=== PATIENT | female | born 1965 | race African-American/Black ===

== ENCOUNTER 2017-02-11 15:12 | Inpatient (IN) | payer OTHER ==
[2017-02-11 17:54] VITALS: BMI 34.8
--- NOTE | 2017-02-11 20:00 | HP ---
Admission ROS [facility] Chief Complaint: ha muhammad for rehab from alcohol and cocaine Allergies/Adverse Reactions: Allergies Allergy/AdvReac Type Severity Reaction Status Date / Time aspirin Allergy Severe Difficulty Verified 07/24/15 17:56 Breathing fish derived Allergy Severe Difficulty Verified 07/24/15 17:56 Breathing pork derived (porcine) Allergy Severe Difficulty Verified 07/24/15 17:56 Breathing History of Present Illness: this 51 years old female with alcohol and cocaine dependence for rehab,last treatment in [facility] 01/18/17 to 02/11/17 schizoaffective disorder nicotine dependence multiple admissions in the past longest period of sobriety 4 years Exam Limitations: No Limitations - Ebola screening Have you traveled outside of the country in the last 21 days: No Have you had contact with anyone from an Ebola affected area: No Have you been sick,other than usual withdrawal symptoms: No - Review of Systems Constitutional: No Symptoms Reported EENT: reports: No Symptoms Reported Respiratory: reports: No Symptoms reported Cardiac: reports: No Symptoms Reported GI: reports: No Symptoms Reported : reports: No Symptoms Reported Musculoskeletal: reports: No Symptoms Reported Integumentary: reports: No Symptoms Reported Neuro: reports: No Symptoms reported Endocrine: reports: No Symptoms Reported Hematology: reports: No Symptoms Reported Psychiatric: reports: No Sypmtoms Reported (shizoaffective disorder), Judgement Intact, Mood/Affect Appropiate Patient History - Patient Medical History Hx Anemia: No Hx Asthma: No Hx Chronic Obstructive Pulmonary Disease (COPD): No Hx Cancer: No Hx Cardiac Disorders: No Hx Congestive Heart Failure: No Hx Hypertension: Yes (on norvasc 5 mgs po dialy) Hx Hypercholesterolemia: No Hx Pacemaker: No HX Cerebrovascular Accident: No Hx Seizures: No Hx Dementia: No Hx Diabetes: No Hx Gastrointestinal Disorders: No Hx Liver Disease: No Hx Genitourinary Disorders: No Hx Sexually Transmitted Disorders: Yes (SYPHILIS) Hx Renal Disease (ESRD): No Hx Thyroid Disease: No Hx Human Immunodeficiency Virus (HIV): No (last 01/03 negative) Hx Hepatitis C: No Hx Depression: Yes Hx Suicide Attempt: Yes (X3 TIMES BY OVERDOSING PILLS.) Hx Bipolar Disorder: No Hx Schizophrenia: Yes Other Medical History: no suicidal,no homicidal - Patient Surgical History Past Surgical History: No Hx Neurologic Surgery: No Hx Cataract Extraction: No Hx Cardiac Surgery: No Hx Lung Surgery: No Hx Breast Surgery: No Hx Breast Biopsy: No Hx Abdominal Surgery: No Hx Appendectomy: No Hx Cholecystectomy: No Hx Genitourinary Surgery: No Hx Section: No Hx Orthopedic Surgery: No Anesthesia Reaction: No - PPD History Previous Implant?: Yes Documented Results: Negative w/o proof Implanted On Prior [facility] Admission?: Yes Date: 11/30/14 Results: 0MM PPD to be Administered?: Yes - Reproductive History Patient is a Female of Child Bearing Age (11 -55 yrs old): Yes Last Menstrual Period: 09/26/14 Patient : No - Smoking Cessation Smoking history: Current every day smoker Have you smoked in the past 12 months: Yes Aproximately how many cigarettes per day: 5 Cigars Per Day: 0 Hx Chewing Tobacco Use: No Initiated information on smoking cessation: Yes 'Breaking Loose' booklet given: 02/11/17 - Substance & Tx. History Hx Alcohol Use: Yes Hx Substance Use: Yes Substance Use Type: Alcohol, Cocaine Hx Substance Use Treatment: Yes ([facility] 01/18/17 to 02/11/17) - Substances Abused Alcohol Route: Oral Frequency: Daily Amount used: 2 of 6 packs of 16 ozs can of beer Age of first use: 17 Date of Last Use: 01/15/17 Cocaine Route: Smoking Frequency: 1-2 times per week Amount used: 50$ Age of first use: 26 Date of Last Use: 01/15/17 Family Disease History - Family Disease History Family Disease History: Heart Disease: Mother (alcohol,htn), CA: Sister (alcohol ,colon ca.), Other: Mother, Brother (alcohol), Sister Admission Physical Exam [facility] - Vital Signs Vital Signs: Vital Signs - 24 hr 02/11/17 17:50 Temperature 97.0 F L Pulse Rate 71 Respiratory 18 Rate Blood Pressure 123/70 - Physical General Appearance: Yes: Within Normal Limits HEENTM: Yes: Hearing grossly Normal, Normal ENT Inspection, Pharynx Normal Respiratory: Yes: Lungs Clear, Normal Breath Sounds, No Respiratory Distress Neck: Yes: Within Normal Limits Breast: Yes: Breast Exam Deferred Cardiology: Yes: Within Normal Limits, Regular Rhythm, Regular Rate, S1, S2 Abdominal: Yes: Within Normal Limits, Normal Bowel Sounds, Non Tender, Flat, Soft Genitourinary: Yes: Within Normal Limits Back: Yes: Within Normal Limits Musculoskeletal: Yes: Within Normal Limits, full range of Motion Extremities: Yes: Within Normal Limits 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, Fully Oriented, Alert, Motor Strength 5/5 Integumentary: Yes: Within Normal Limits Lymphatic: Yes: Within Normal Limits - Diagnostic (1) Alcohol dependence Current Visit: No Status: Chronic (2) Cocaine dependence Current Visit: No Status: Chronic (3) HTN (hypertension) Current Visit: No Status: Chronic (4) Nicotine dependence Current Visit: No Status: Chronic (5) Schizophrenia, paranoid type Current Visit: No Status: Chronic (6) History of syphilis Current Visit: Yes Status: Acute Cleared for Admission [facility] - Detox or Rehab Claeared for Rehab Admission: Yes [facility] Breath Alcohol Content Breath Alcohol Content: 0 Urine Pregancy Test - Result Urine Test Results: Negative- NO Line Present Urine Drug Screen - Results Drug Screen Negative: Yes
[2017-02-11] MEDS ORDERED: MENTHOL/PHENOL 1 EACH UD MM PRN (20:12)
[2017-02-11] MEDS ORDERED: diphenhydrAMINE HCL 50 MG CAPSULE PO PRN (20:12)
[2017-02-11] MEDS ORDERED: LOPERAMIDE HCL 2 MG CAPSULE PO PRN (20:12)
[2017-02-11] MEDS ORDERED: IBUPROFEN 400 MG TABLET (FP) PO PRN (20:12)
[2017-02-11] MEDS ORDERED: guaiFENesin/D-METHORPHAN HB 10 ML UNIT-DOSE CUPS PO PRN (20:12)
[2017-02-11] MEDS ORDERED: MAGNESIUM HYDROX 2400MG/30ML ORAL SUSPENSION 30 ML CUP PO PRN (20:12)
[2017-02-11] MEDS ORDERED: MAGNESIUM CITRATE 300 ML BOTTLE PO PRN (20:12)
[2017-02-11] MEDS ORDERED: ACETAMINOPHEN 325 MG TABLET (FP) PO PRN (20:12)
[2017-02-11] MEDS ORDERED: P-EPHED 60MG/TRIPROLIDI 2.5MG TABLET PO PRN (20:12)
[2017-02-11] MEDS ORDERED: MAG HYDROX/AL HYDROX/SIMETH 30 ML UNIT-DOSE CUP PO PRN (20:12)
[2017-02-11] MEDS ORDERED: hydrOXYzine PAMOATE 50 MG CAPSULE (FP) PO PRN (20:12)
[2017-02-11] MEDS ORDERED: TUBERCULIN PPD 5 TU/0.1ML VIAL ID ONE (22:02)
[2017-02-11 23:18] LABS: URINE APPEARANCE CLEAR; URINE BILIRUBIN NEGATIVE (NEGATIVE); URINE BLOOD NEGATIVE (NEGATIVE); URINE COLOR STRAW; URINE GLUCOSE (UA) NEGATIVE (NEGATIVE); URINE KETONE NEGATIVE (NEGATIVE); URINE NITRITE NEGATIVE (NEGATIVE); URINE PROTEIN NEGATIVE (NEGATIVE); URINE UROBILINOGEN NEGATIVE mg/dL (0.2-1.0)
--- NOTE | 2017-02-11 23:22 | PN ---
[facility] Progress Note Note: ekg nsr,frequent vpcs no chest pain,no sob,no dizziness Vital Signs Temperature 97.0 F L 02/11/17 17:50 Pulse Rate 71 02/11/17 17:50 Respiratory Rate 18 02/11/17 17:50 Blood Pressure 123/70 02/11/17 17:50 O2 Sat by Pulse Oximetry (%) will repeat ekg in am close monitoring
[2017-02-11] MEDS: BENZTROPINE MESYLATE 1 MG TABLET (FP) PO SCH (23:46)
[2017-02-11] MEDS: HALOPERIDOL 5 MG TABLET (FP) PO SCH (23:46)
[2017-02-11] MEDS: THIAMINE HCL 100 MG TABLET (FP) PO SCH (23:48)
[2017-02-11 23:58] LABS: URINE LEUK ESTERASE 1+ (NEGATIVE)
[2017-02-12 02:19] LABS: URINE RBC <1 /hpf (0-3); URINE WBC 1 /hpf (3-5)
[2017-02-12] MEDS: PRENATAL VITAMINS W/ FOLIC ACID TABLET (FP) PO SCH (09:38)
[2017-02-12] MEDS: SERTRALINE HCL 50 MG TABLET (FP) PO SCH (09:39)
[2017-02-12] MEDS: amLODIPine BESYLATE 5 MG TABLET (FP) PO SCH (09:39)
[2017-02-12] MEDS: BENZTROPINE MESYLATE 1 MG TABLET (FP) PO SCH ×2 (09:39→21:32)
[2017-02-12] MEDS: HALOPERIDOL 5 MG TABLET (FP) PO SCH ×2 (09:39→21:32)
[2017-02-12 10:12] LABS: MCH 29.3 pg (25.7-33.7); MCHC 33.4 g/dl (32.0-36.0); MEAN CELL VOLUME 87.7 fl (80-96); MEAN PLT VOLUME 8.4 fl (7.5-11.1); PLATELET COUNT 205 K/MM3 (134-434); WHITE BLOOD COUNT 4.7 K/mm3 (4.0-10.0)
[2017-02-12 10:26] LABS: ALBUMIN 3.6 g/dl (3.4-5.0); ANION GAP 6 (8-16); CALCIUM 8.6 mg/dL (8.5-10.1); CO2 33 mmol/L (21-32); CREATININE 0.8 mg/dL (0.55-1.02); GLUCOSE,RANDOM 89 mg/dL (74-106); SGOT/AST 19 U/L (15-37); SGPT/ALT 18 U/L (12-78)
[2017-02-12 10:29] LABS: ALK PHOS 61 U/L (45-117); BILIRUBIN,TOTAL 0.5 mg/dL (0.2-1.0); TOT PROT 6.6 g/dl (6.4-8.2)
[2017-02-12 10:38] LABS: HIV 1 & 2 AB NEGATIVE; HIV 1 AGp24 NEGATIVE
--- NOTE | 2017-02-12 11:57 | EKG ---
Test Reason : Blood Pressure : / mmHG Vent. Rate : 074 BPM Atrial Rate : 074 BPM P-R Int : 200 ms QRS Dur : 084 ms QT Int : 426 ms P-R-T Axes : 072 050 053 degrees QTc Int : 472 ms SINUS RHYTHM WITH FREQUENT PREMATURE VENTRICULAR COMPLEXES OTHERWISE NORMAL ECG NO PREVIOUS ECGS AVAILABLE Confirmed by MOO SAVAGE, TARAS ([id number]) on 02/12/2017 11:57:25 AM Referred By: Disha Guo Confirmed By:TARAS CORTÉS MD
--- NOTE | 2017-02-12 12:04 | EKG ---
Test Reason : Blood Pressure : / mmHG Vent. Rate : 055 BPM Atrial Rate : 055 BPM P-R Int : 206 ms QRS Dur : 082 ms QT Int : 470 ms P-R-T Axes : 065 036 043 degrees QTc Int : 449 ms SINUS BRADYCARDIA WITH OCCASIONAL PREMATURE VENTRICULAR COMPLEXES OTHERWISE NORMAL ECG WHEN COMPARED WITH ECG OF 11-FEB-2017 21:11, NO SIGNIFICANT CHANGE WAS FOUND Confirmed by TARAS CORTÉS MD ([id number]) on 02/12/2017 12:04:15 PM Referred By: Disha Guo Confirmed By:TARAS CORTÉS MD
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
[2017-02-12] MEDS: THIAMINE HCL 100 MG TABLET (FP) PO SCH (21:32)
[2017-02-13] MEDS: PRENATAL VITAMINS W/ FOLIC ACID TABLET (FP) PO SCH (09:42)
[2017-02-13] MEDS: SERTRALINE HCL 50 MG TABLET (FP) PO SCH (09:42)
[2017-02-13] MEDS: HALOPERIDOL 5 MG TABLET (FP) PO SCH ×2 (09:42→21:18)
[2017-02-13] MEDS: amLODIPine BESYLATE 5 MG TABLET (FP) PO SCH (09:43)
[2017-02-13] MEDS: BENZTROPINE MESYLATE 1 MG TABLET (FP) PO SCH ×2 (09:43→21:18)
[2017-02-13] MEDS: THIAMINE HCL 100 MG TABLET (FP) PO SCH (21:18)
[2017-02-14] MEDS ORDERED: PT OWN MED DRAWER 7, Y5N ONE (00:16)
[2017-02-14] MEDS: HALOPERIDOL 5 MG TABLET (FP) PO SCH ×2 (09:47→21:00)
[2017-02-14] MEDS: SERTRALINE HCL 50 MG TABLET (FP) PO SCH (09:47)
[2017-02-14] MEDS: BENZTROPINE MESYLATE 1 MG TABLET (FP) PO SCH ×2 (09:47→21:00)
[2017-02-14] MEDS: amLODIPine BESYLATE 5 MG TABLET (FP) PO SCH (09:47)
[2017-02-14] MEDS: PRENATAL VITAMINS W/ FOLIC ACID TABLET (FP) PO SCH (09:47)
[2017-02-14] MEDS: THIAMINE HCL 100 MG TABLET (FP) PO SCH (21:00)
[2017-02-15] MEDS: BENZTROPINE MESYLATE 1 MG TABLET (FP) PO SCH ×2 (09:40→21:02)
[2017-02-15] MEDS: SERTRALINE HCL 50 MG TABLET (FP) PO SCH (09:40)
[2017-02-15] MEDS: PRENATAL VITAMINS W/ FOLIC ACID TABLET (FP) PO SCH (09:40)
[2017-02-15] MEDS: HALOPERIDOL 5 MG TABLET (FP) PO SCH ×2 (09:40→21:02)
[2017-02-15] MEDS: amLODIPine BESYLATE 5 MG TABLET (FP) PO SCH (09:40)
[2017-02-15] MEDS: THIAMINE HCL 100 MG TABLET (FP) PO SCH (21:02)
[2017-02-16] MEDS: SERTRALINE HCL 50 MG TABLET (FP) PO SCH (09:57)
[2017-02-16] MEDS: HALOPERIDOL 5 MG TABLET (FP) PO SCH ×2 (09:57→21:11)
[2017-02-16] MEDS: BENZTROPINE MESYLATE 1 MG TABLET (FP) PO SCH ×2 (09:58→21:12)
[2017-02-16] MEDS: PRENATAL VITAMINS W/ FOLIC ACID TABLET (FP) PO SCH (09:58)
[2017-02-16] MEDS: amLODIPine BESYLATE 5 MG TABLET (FP) PO SCH (09:58)
[2017-02-16] MEDS ORDERED: TUBERCULIN PPD 5 TU/0.1ML VIAL ID ONE (18:04)
[2017-02-16] MEDS: THIAMINE HCL 100 MG TABLET (FP) PO SCH (21:11)
[2017-02-17] MEDS: HALOPERIDOL 5 MG TABLET (FP) PO SCH ×2 (09:44→21:14)
[2017-02-17] MEDS: BENZTROPINE MESYLATE 1 MG TABLET (FP) PO SCH ×2 (09:44→21:14)
[2017-02-17] MEDS ORDERED: PT OWN MED DRAWER 7, Y5N ONE (09:44)
[2017-02-17] MEDS: PRENATAL VITAMINS W/ FOLIC ACID TABLET (FP) PO SCH (09:45)
[2017-02-17] MEDS: SERTRALINE HCL 50 MG TABLET (FP) PO SCH (09:45)
[2017-02-17] MEDS: amLODIPine BESYLATE 5 MG TABLET (FP) PO SCH (09:45)
[2017-02-17] MEDS: THIAMINE HCL 100 MG TABLET (FP) PO SCH (21:14)
[2017-02-18] MEDS: HALOPERIDOL 5 MG TABLET (FP) PO SCH (09:17)
[2017-02-18] MEDS: PRENATAL VITAMINS W/ FOLIC ACID TABLET (FP) PO SCH (09:17)
[2017-02-18] MEDS: BENZTROPINE MESYLATE 1 MG TABLET (FP) PO SCH (09:17)
[2017-02-18] MEDS: SERTRALINE HCL 50 MG TABLET (FP) PO SCH (09:18)
[2017-02-18] MEDS: amLODIPine BESYLATE 5 MG TABLET (FP) PO SCH (09:18)
[2017-02-18 09:50] VITALS: BP 123/79; PULSE 73; TEMP 98.2
--- NOTE | 2017-02-18 10:02 | PN ---
Psychiatric Progress Note Vital Signs: Vital Signs Period Temp Pulse Resp BP Sys/Diego Pulse Ox Last 24 Hr 98.0 F-98.2 F 70-73 16-18 122-123/79-85 Date of Session: 02/18/17 Chief Complaint:: Discharge visit HPI: Patient addressed Cocaine and Alcohol dependence comorbid with ROS: Significant for HTN,H/O Syphilis. Current Medications: Active Medications Generic Name Dose Route Start Last Admin Trade Name Freq PRN Reason Stop Dose Admin Acetaminophen 650 mg 02/11/17 20:12 Tylenol - PO Q4H PRN PAIN Al Hydroxide/Mg Hydroxide 30 ml 02/11/17 20:12 Mylanta Oral Suspension - PO Q6H PRN DYSPEPSIA Amlodipine Besylate 5 mg 02/12/17 10:00 02/18/17 09:18 Norvasc - PO 5 mg DAILY GURJIT Administration Benztropine Mesylate 1 mg 02/11/17 22:15 02/18/17 09:17 Cogentin - PO 1 mg BID GURJIT Administration Eucalyptus/Menthol/Phenol/Sorbitol 1 each 02/11/17 20:12 Cepastat Lozenge - MM Q4H PRN SORE THROAT Guaifenesin 10 ml 02/11/17 20:12 Robitussin Dm - PO Q6H PRN COUGH Haloperidol 10 mg 02/11/17 22:15 02/18/17 09:17 Haldol - PO 10 mg BID GURJIT Administration Hydroxyzine Pamoate 50 mg 02/11/17 20:12 Vistaril - PO Q4H PRN AGITATION Loperamide HCl 4 mg 02/11/17 20:12 Imodium - PO Q6H PRN DIARRHEA Magnesium Citrate 300 ml 02/11/17 20:12 Citroma - PO Q48H PRN CONSTIPATION Magnesium Hydroxide 30 ml 02/11/17 20:12 Milk Of Magnesia - PO DAILY PRN CONSTIPATION Multivit/Folic Acid/Iron 1 tab 02/12/17 10:00 02/18/17 09:17 Vitamins (Sjr) - PO 1 tab DAILY GURJIT Administration Pseudoephedrine/Triprolidine 1 combo 02/11/17 20:12 Actifed - PO TID PRN NASAL CONGESTION Sertraline HCl 100 mg 02/12/17 10:00 02/18/17 09:18 Zoloft - PO 100 mg DAILY GURJIT Administration Thiamine HCl 100 mg 02/11/17 22:00 02/17/17 21:14 Vitamin B1 - PO 100 mg HS GURJIT Administration Current Side Effect: No Lab tests ordered: No Lab tests reviewed: Yes Provider note:: Patient completed this program today.She has met her treatment goals and will continue to address her issues on outpatient basis.patient continues to find that current medications including Haldol 10 mg po bid, Cogentin 1 mg po bid and Zoloft 100 mg po daily help to cope with mood instability,depression,prevent from psychotic episodes.Scripts for 30 days supply provided. Supportive therapy provided focusing on Coping skillls, support system utilization to maintain recovery. patient is stable for discharge today. Total face to face time:: 30 Mental Status Exam - Mental Status Exam Alert and Oriented to: Time, Place, Person Cognitive Function: Grossly Intact Patient Appearance: Well Groomed Mood: Hopeful Affect: Mood Congruent Patient Behavior: Cooperative Speech Pattern: Clear Voice Loudness: Normal Thought Process: Goal Oriented Thought Disorder: Not Present Hallucinations: Denies Suicidal Ideation: Denies Homicidal Ideation: Denies Insight/Judgement: Fair Sleep: Fair Appetite: Good Muscle strength/Tone: Normal Gait/Station: Normal
== END 2017-02-18 09:52 | disposition home or self-care (01) | DRG 772 ==
LOC: YASAS 15:12 → Y3E 20:15
PROVIDERS: ADMIT Psychiatry & Neurology Psychiatry; ATTEND Psychiatry & Neurology Psychiatry
PROC: HZ42ZZZ Group Counseling for Substance Abuse Treatment, Cognitive-Behavioral (ICD-10-PCS; principal; 2017-02-11)
DX: F10.20 Alcohol dependence, uncomplicated (principal); F14.20 Cocaine dependence, uncomplicated; F17.210 Nicotine dependence, cigarettes, uncomplicated; F20.0 Paranoid schizophrenia; I10 Essential (primary) hypertension; Z87.42 Personal history of other diseases of the female genital tract; Z91.5 Personal history of self-harm
CPT/HCPCS: 36415; 80053; 81003; 81015; 85027; 86593; 87389; 93005; 93010

== ENCOUNTER 2017-06-10 11:12 | Inpatient (IN) | payer BC ==
[2017-06-10 11:23] VITALS: BMI 33.9
--- NOTE | 2017-06-10 12:26 | HP ---
Admission ROS [facility] Chief Complaint: REHAB TX FOR ALCOHOL AND COCAINE ADDICTION Allergies/Adverse Reactions: Allergies Allergy/AdvReac Type Severity Reaction Status Date / Time aspirin Allergy Severe Difficulty Verified 06/10/17 11:57 Breathing fish derived Allergy Severe Difficulty Verified 06/10/17 11:57 Breathing pork derived (porcine) Allergy Severe Difficulty Verified 06/10/17 11:57 Breathing History of Present Illness: 52 Y/O AA/FEMALE WITH A HX OF COCAINE AND ALCOHOL DEPENDENCE SEEKING REHAB TX. PT STATES SHE WAS D/C'D FROM [facility] TODAY AFTER 10 DAYS AND REFERRED HERE TODAY. Exam Limitations: No Limitations - Ebola screening Have you traveled outside of the country in the last 21 days: No Have you had contact with anyone from an Ebola affected area: No Have you been sick,other than usual withdrawal symptoms: No - Review of Systems Constitutional: Changes in sleep EENT: reports: Tearing, Nose Congestion, Dental Problems (MISSING TEETH) Respiratory: reports: No Symptoms reported Cardiac: reports: Lightheadedness GI: reports: Constipated : reports: Frequency Musculoskeletal: reports: No Symptoms Reported Integumentary: reports: No Symptoms Reported Neuro: reports: Headache, Tremors, Unsteady Gait, Dizziness Endocrine: reports: No Symptoms Reported Hematology: reports: No Symptoms Reported Psychiatric: reports: Orientated x3, Anxious, Depressed Other Systems: Reviewed and Negative Patient History - Patient Medical History Hx Anemia: No Hx Asthma: No Hx Chronic Obstructive Pulmonary Disease (COPD): No Hx Cancer: No Hx Cardiac Disorders: No Hx Congestive Heart Failure: No Hx Hypertension: Yes (ON NORVASC 5 MG DAILY) Hx Hypercholesterolemia: No Hx Pacemaker: No HX Cerebrovascular Accident: No Hx Seizures: No Hx Dementia: No Hx Diabetes: No Hx Gastrointestinal Disorders: No Hx Liver Disease: No Hx Genitourinary Disorders: No Hx Sexually Transmitted Disorders: Yes (syphilis in 1988) Hx Renal Disease (ESRD): No Hx Thyroid Disease: No Hx Human Immunodeficiency Virus (HIV): No (last 01/03 negative hX) Hx Hepatitis C: No Hx Depression: Yes Hx Suicide Attempt: Yes (pill overdose in 2004;DENIES CURRENT S/I) Hx Bipolar Disorder: No Hx Schizophrenia: Yes (SCHIZOAFFECTIVE DISORDER) - Patient Surgical History Past Surgical History: No Hx Neurologic Surgery: No Hx Cataract Extraction: No Hx Cardiac Surgery: No Hx Lung Surgery: No Hx Breast Surgery: No Hx Breast Biopsy: No Hx Abdominal Surgery: No Hx Appendectomy: No Hx Cholecystectomy: No Hx Genitourinary Surgery: No Hx Orthopedic Surgery: No Anesthesia Reaction: No - PPD History Previous Implant?: Yes Documented Results: Negative w/proof Implanted On Prior [facility] Admission?: Yes Date: 02/13/17 Results: 0 mm PPD to be Administered?: No - Reproductive History Patient is a Female of Child Bearing Age (11 -55 yrs old): Yes (POST MENOPAUSAL) Last Menstrual Period: 09/26/14 Patient : No - Smoking Cessation Smoking history: Current every day smoker Have you smoked in the past 12 months: Yes Aproximately how many cigarettes per day: 5 Cigars Per Day: 0 Hx Chewing Tobacco Use: No Initiated information on smoking cessation: Yes 'Breaking Loose' booklet given: 06/10/17 - Substance & Tx. History Hx Alcohol Use: Yes (BEER) Hx Substance Use: Yes (CRACK) Substance Use Type: Alcohol, Cocaine Hx Substance Use Treatment: Yes ([facility] ) - Substances Abused Crack Route: Smoking Frequency: 3-6 times per week Amount used: $50 Age of first use: 26 Date of Last Use: 05/28/17 Alcohol-beer Route: Oral Frequency: Daily Amount used: 2-6 pks. Age of first use: 17 Date of Last Use: 05/28/17 Family Disease History - Family Disease History Family Disease History: Heart Disease: Mother (alcohol,htn), CA: Sister (alcohol ,colon ca.), Other: Mother, Brother (alcohol), Sister Admission Physical Exam S - Vital Signs Vital Signs: Vital Signs - 24 hr 06/10/17 11:20 Temperature 98.1 F Pulse Rate 72 Respiratory 18 Rate Blood Pressure 130/80 - Physical General Appearance: Yes: No Apparent Distress, Obese HEENTM: Yes: EOMI, Normocephalic, DIXON, Pharynx Normal Respiratory: Yes: Chest Non-Tender, Lungs Clear, Normal Breath Sounds, No Respiratory Distress Neck: Yes: No masses,lesions,Nodules, Supple, Trachea in good position Breast: Yes: Breast Exam Deferred Cardiology: Yes: Regular Rhythm, Regular Rate, S1, S2 Abdominal: Yes: Normal Bowel Sounds, Non Tender, Soft Genitourinary: Yes: Other (N/C) Back: Yes: Within Normal Limits Musculoskeletal: Yes: full range of Motion, Gait Steady Extremities: Yes: Normal Range of Motion, Non-Tender 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, Fully Oriented, Alert, Motor Strength 5/5 Integumentary: Yes: Dry, Warm Lymphatic: Yes: Within Normal Limits - Diagnostic (1) Alcohol dependence with uncomplicated withdrawal Current Visit: Yes Status: Chronic (2) Cocaine dependence Current Visit: Yes Status: Chronic (3) HTN (hypertension) Current Visit: Yes Status: Chronic Qualifiers: Hypertension type: essential hypertension Qualified Code(s): I10 - Essential (primary) hypertension (4) Nicotine dependence Current Visit: Yes Status: Acute Qualifiers: Substance use status: in withdrawal Cleared for Admission [facility] - Detox or Rehab Claeared for Rehab Admission: Yes [facility] Breath Alcohol Content Breath Alcohol Content: 0 Urine Pregancy Test - Result Urine Test Results: Negative- NO Line Present Urine Drug Screen - Results Drug Screen Negative: No Urine Drug Screen Results: TCA-Tricyclic Antidepress Inpatient Rehab Admission - Initial Determination Are CD services needed?: Yes Free of communicable disease: Yes Not in need of hospitalization: Yes - Rehab Admission Criteria Patient is meeting Inpatient Rehab admission criteria:: Yes
[2017-06-10] MEDS ORDERED: guaiFENesin/D-METHORPHAN HB 10 ML UNIT-DOSE CUPS PO PRN (12:32)
[2017-06-10] MEDS ORDERED: P-EPHED 60MG/TRIPROLIDI 2.5MG TABLET PO PRN (12:32)
[2017-06-10] MEDS ORDERED: MAG HYDROX/AL HYDROX/SIMETH 30 ML UNIT-DOSE CUP PO PRN (12:32)
[2017-06-10] MEDS ORDERED: LOPERAMIDE HCL 2 MG CAPSULE PO PRN (12:32)
[2017-06-10] MEDS ORDERED: MAGNESIUM CITRATE 300 ML BOTTLE PO PRN (12:32)
[2017-06-10] MEDS ORDERED: MAGNESIUM HYDROX 2400MG/30ML ORAL SUSPENSION 30 ML CUP PO PRN (12:32)
[2017-06-10] MEDS ORDERED: NICOTINE POLACRILEX 2 MG GUM BUC PRN (12:32)
[2017-06-10] MEDS ORDERED: MENTHOL/PHENOL 1 EACH UD MM PRN (12:32)
[2017-06-10] MEDS ORDERED: ACETAMINOPHEN 325 MG TABLET (FP) PO PRN (12:32)
[2017-06-10 13:24] LABS: MCH 29.1 pg (25.7-33.7); MCHC 33.5 g/dl (32.0-36.0); MEAN CELL VOLUME 86.8 fl (80-96); MEAN PLT VOLUME 8.5 fl (7.5-11.1); PLATELET COUNT 201 K/MM3 (134-434); RDW 13.2 % (11.6-15.6); WHITE BLOOD COUNT 3.4 K/mm3 (4.0-10.0)
[2017-06-10 13:44] LABS: ALBUMIN 3.8 g/dl (3.4-5.0); ANION GAP 7 (8-16); CALCIUM 8.9 mg/dL (8.5-10.1); CO2 28 mmol/L (21-32); GLUCOSE,RANDOM 101 mg/dL (74-106); SGPT/ALT 15 U/L (12-78)
[2017-06-10 13:48] LABS: ALK PHOS 62 U/L (45-117); BILIRUBIN,TOTAL 0.2 mg/dL (0.2-1.0); SGOT/AST 13 U/L (15-37); TOT PROT 6.9 g/dl (6.4-8.2)
--- NOTE | 2017-06-10 15:42 | HP ---
Psychiatrist Admission - Data Date of interview: 06/10/17 Admission source: [facility] Identifying data: This is one of the multiple admissions to [facility] for this 52 years old single AA female mother of 2 grown children ,resides with son, supported by [employer]. Medical History: Significant for HTN. Psychiatric History: patient reports long and extensive psychiatric history , started back in her teens.reports first psychiatric hospitalization at 17 years old to [facility] after her first psychotic episode with auditory hallucinatons,paranoid behavior.she was dx with Schizophrenia.Paranoid type.Patient reports more then 20 psychiatric hospitalizations.Most recent admission was in January 2017 to [facility] dus excacerbation of psychosis provoked by drug use,noncompliance with treatment.patient obtains her psychotropic medications from local ER. Physical/Sexual Abuse/Trauma History: not willing to discuss at this time Vital Signs: Vital Signs - 24 hr 06/10/17 11:20 Temperature 98.1 F Pulse Rate 72 Respiratory 18 Rate Blood Pressure 130/80 Allergies/Adverse Reactions: Allergies Allergy/AdvReac Type Severity Reaction Status Date / Time aspirin Allergy Severe Difficulty Verified 06/10/17 11:57 Breathing fish derived Allergy Severe Difficulty Verified 06/10/17 11:57 Breathing pork derived (porcine) Allergy Severe Difficulty Verified 06/10/17 11:57 Breathing Date of last physical exam: 06/10/17 Concur with the findings of this exam: Yes - Substance Abuse/Tx History Hx Alcohol Use: Yes (repors drinking since 17 yo.6 packs and 1 pint of vodka daily) Hx Substance Use: Yes (crack since 23 yo,spending $100 daily) Substance Use Type: Alcohol, Cocaine Hx Substance Use Treatment: Yes (completed this program in 2015) Mental Status Exam - Mental Status Exam Alert and Oriented to: Time, Place, Person Cognitive Function: Grossly Intact Patient Appearance: Unkempt Mood: Euthymic Affect: Mood Congruent Patient Behavior: Cooperative Speech Pattern: Clear Voice Loudness: Normal Thought Process: Goal Oriented Thought Disorder: Being Controlled Hallucinations: Denies Suicidal Ideation: Denies Homicidal Ideation: Denies Insight/Judgement: Fair Sleep: Fair Appetite: Fair Muscle strength/Tone: Normal Gait/Station: Normal Psychiatric Findings - Problem List ([place] 1, 2,3) (1) Nicotine dependence Current Visit: Yes Status: Chronic Qualifiers: Substance use status: in withdrawal (2) Cocaine dependence Current Visit: Yes Status: Chronic (3) HTN (hypertension) Current Visit: Yes Status: Chronic Qualifiers: Hypertension type: essential hypertension Qualified Code(s): I10 - Essential (primary) hypertension (4) History of syphilis Current Visit: Yes Status: Resolved (5) Schizophrenia, paranoid type Current Visit: Yes Status: Chronic (6) Alcohol dependence Current Visit: Yes Status: Chronic - Initial Treatment Plan Initial Treatment Plan: Haldol 5 mg po daily,Cogentin 1 mg po hs and Celexa 20 mg po daily. Will monitor progress.
[2017-06-10] MEDS: NICOTINE 14 MG/24 HOURS TOPICAL PATCH TD SCH (15:44)
[2017-06-10] MEDS: amLODIPine BESYLATE 5 MG TABLET (FP) PO SCH (15:44)
[2017-06-10 18:45] LABS: URINE APPEARANCE SLCLOUDY; URINE BILIRUBIN NEGATIVE (NEGATIVE); URINE BLOOD NEGATIVE (NEGATIVE); URINE COLOR YELLOW; URINE GLUCOSE (UA) NEGATIVE (NEGATIVE); URINE KETONE NEGATIVE (NEGATIVE); URINE NITRITE NEGATIVE (NEGATIVE); URINE PROTEIN NEGATIVE (NEGATIVE); URINE UROBILINOGEN NEGATIVE mg/dL (0.2-1.0)
[2017-06-10] MEDS: THIAMINE HCL 100 MG TABLET (FP) PO SCH (21:22)
[2017-06-10 21:23] LABS: URINE LEUK ESTERASE TRACE (NEGATIVE)
[2017-06-10 22:58] LABS: URINE BACTERIA FEW /hpf (NEGATIVE); URINE RBC 0-2 /hpf (0-3)
[2017-06-11] MEDS: BENZTROPINE MESYLATE 1 MG TABLET (FP) PO SCH (09:44)
[2017-06-11] MEDS: CITALOPRAM HYDROBROMIDE 20 MG TABLET (FP) PO SCH (09:44)
[2017-06-11] MEDS: HALOPERIDOL 5 MG TABLET (FP) PO SCH (09:45)
[2017-06-11] MEDS: PRENATAL VITAMINS W/ FOLIC ACID TABLET (FP) PO SCH (09:45)
[2017-06-11] MEDS: amLODIPine BESYLATE 5 MG TABLET (FP) PO SCH (09:45)
[2017-06-11] MEDS: NICOTINE 14 MG/24 HOURS TOPICAL PATCH TD SCH (09:45)
[2017-06-11] MEDS: THIAMINE HCL 100 MG TABLET (FP) PO SCH (21:42)
--- NOTE | 2017-06-11 22:29 | EKG ---
Test Reason : Blood Pressure : / mmHG Vent. Rate : 073 BPM Atrial Rate : 073 BPM P-R Int : 188 ms QRS Dur : 082 ms QT Int : 434 ms P-R-T Axes : 065 048 037 degrees QTc Int : 478 ms POOR DATA QUALITY, INTERPRETATION MAY BE ADVERSELY AFFECTED NORMAL SINUS RHYTHM MINIMAL VOLTAGE CRITERIA FOR LVH, MAY BE NORMAL VARIANT BORDERLINE PROLONGED QT ABNORMAL ECG WHEN COMPARED WITH ECG OF 12-FEB-2017 05:44, PREMATURE VENTRICULAR COMPLEXES ARE NO LONGER PRESENT Confirmed by JOSE LUIS MCCABE MD ([id number]) on 06/11/2017 10:29:04 PM Referred By: Confirmed By:JOSE LUIS MCCABE MD
[2017-06-12] MEDS: PRENATAL VITAMINS W/ FOLIC ACID TABLET (FP) PO SCH (10:04)
[2017-06-12] MEDS: CITALOPRAM HYDROBROMIDE 20 MG TABLET (FP) PO SCH (10:04)
[2017-06-12] MEDS: BENZTROPINE MESYLATE 1 MG TABLET (FP) PO SCH (10:05)
[2017-06-12] MEDS: HALOPERIDOL 5 MG TABLET (FP) PO SCH (10:05)
[2017-06-12] MEDS: amLODIPine BESYLATE 5 MG TABLET (FP) PO SCH (10:05)
[2017-06-12] MEDS: NICOTINE 14 MG/24 HOURS TOPICAL PATCH TD SCH (10:05)
[2017-06-12] MEDS: THIAMINE HCL 100 MG TABLET (FP) PO SCH (21:47)
[2017-06-13] MEDS: BENZTROPINE MESYLATE 1 MG TABLET (FP) PO SCH (09:45)
[2017-06-13] MEDS: PRENATAL VITAMINS W/ FOLIC ACID TABLET (FP) PO SCH (09:45)
[2017-06-13] MEDS: amLODIPine BESYLATE 5 MG TABLET (FP) PO SCH (09:46)
[2017-06-13] MEDS: HALOPERIDOL 5 MG TABLET (FP) PO SCH (09:46)
[2017-06-13] MEDS: CITALOPRAM HYDROBROMIDE 20 MG TABLET (FP) PO SCH (09:46)
[2017-06-13] MEDS: NICOTINE 14 MG/24 HOURS TOPICAL PATCH TD SCH (09:46)
[2017-06-13] MEDS: THIAMINE HCL 100 MG TABLET (FP) PO SCH (21:21)
[2017-06-13] MEDS: hydrOXYzine PAMOATE 50 MG CAPSULE (FP) PO PRN (21:23)
[2017-06-14] MEDS: BENZTROPINE MESYLATE 1 MG TABLET (FP) PO SCH (09:54)
[2017-06-14] MEDS: CITALOPRAM HYDROBROMIDE 20 MG TABLET (FP) PO SCH (09:54)
[2017-06-14] MEDS: amLODIPine BESYLATE 5 MG TABLET (FP) PO SCH (09:54)
[2017-06-14] MEDS: PRENATAL VITAMINS W/ FOLIC ACID TABLET (FP) PO SCH (09:54)
[2017-06-14] MEDS: HALOPERIDOL 5 MG TABLET (FP) PO SCH ×2 (09:54→21:04)
[2017-06-14] MEDS: NICOTINE 14 MG/24 HOURS TOPICAL PATCH TD SCH (09:55)
--- NOTE | 2017-06-14 13:09 | PN ---
Psychiatric Progress Note Vital Signs: Vital Signs Period Temp Pulse Resp BP Sys/Diego Pulse Ox Last 24 Hr 98.1 F 65-79 18-18 119-137/74-76 Date of Session: 06/14/17 Chief Complaint:: Racing thought HPI: Patient addressing Alcohol and Cocaine Dependence comorbid with Nicotine Dependence and Paranoid Schizophrenia ROS: HTN and history of treatment for syphilis Current Medications: Active Medications Generic Name Dose Route Start Last Admin Trade Name Freq PRN Reason Stop Dose Admin Acetaminophen 650 mg 06/10/17 12:32 Tylenol - PO Q4H PRN PAIN Al Hydroxide/Mg Hydroxide 30 ml 06/10/17 12:32 Mylanta Oral Suspension - PO Q6H PRN DYSPEPSIA Amlodipine Besylate 5 mg 06/10/17 14:45 06/14/17 09:54 Norvasc - PO 5 mg DAILY GURJIT Administration Benztropine Mesylate 1 mg 06/11/17 10:00 06/14/17 09:54 Cogentin - PO 1 mg DAILY GURJIT Administration Citalopram Hydrobromide 20 mg 06/11/17 10:00 06/14/17 09:54 Celexa - PO 20 mg DAILY GURJIT Administration Eucalyptus/Menthol/Phenol/Sorbitol 1 each 06/10/17 12:32 Cepastat Lozenge - MM Q4H PRN SORE THROAT Guaifenesin 10 ml 06/10/17 12:32 Robitussin Dm - PO Q6H PRN COUGH Haloperidol 5 mg 06/11/17 10:00 06/14/17 09:54 Haldol - PO 5 mg DAILY GURJIT Administration Hydroxyzine Pamoate 50 mg 06/10/17 12:32 06/13/17 21:23 Vistaril - PO 50 mg Q4H PRN Administration AGITATION Loperamide HCl 4 mg 06/10/17 12:32 Imodium - PO Q6H PRN DIARRHEA Magnesium Citrate 300 ml 06/10/17 12:32 Citroma - PO Q48H PRN CONSTIPATION Magnesium Hydroxide 30 ml 06/10/17 12:32 Milk Of Magnesia - PO DAILY PRN CONSTIPATION Nicotine 14 mg 06/10/17 13:43 06/14/17 09:55 Nicoderm Patch - TD Not Given DAILY GURJIT Nicotine Polacrilex 2 mg 06/10/17 12:32 Nicorette Gum - BUC Q2H PRN NICOTINE REPLACEMENT RX Multivit/Folic Acid/Iron 1 tab 06/11/17 10:00 06/14/17 09:54 Vitamins (Sjr) - PO 1 tab DAILY GURJIT Administration Pseudoephedrine/Triprolidine 1 combo 06/10/17 12:32 Actifed - PO TID PRN NASAL CONGESTION Thiamine HCl 100 mg 06/10/17 22:00 06/13/17 21:21 Vitamin B1 - PO 100 mg HS GURJIT Administration Medication(s) Change(s): Increase Haldol dosage to 5 mg po BID Current Side Effect: No Lab tests ordered: Yes Lab tests reviewed: Yes Provider note:: Patient reports experiencing racing thought. She was discharged from [facility] on Haldol 5mg po daily. Congentin 1 mg po HS and Celexa 20 mg po daily and referred here for inpt rehab. Claims that prior to [facility] admission, she was on Haldol 10 mg po BID. She requests that Haldol dosage be increased Total face to face time:: 25 Mental Status Exam - Mental Status Exam Alert and Oriented to: Time, Place, Person Cognitive Function: Fair Patient Appearance: Well Groomed Mood: Hopeful, Euthymic Affect: Appropriate Patient Behavior: Cooperative Speech Pattern: Clear Voice Loudness: Normal Thought Process: Intact Thought Disorder: Not Present Hallucinations: Denies Suicidal Ideation: Denies Homicidal Ideation: Denies Insight/Judgement: Fair Sleep: Fair Appetite: Good Muscle strength/Tone: Normal Gait/Station: Normal Psychiatric Treatment Plan - Problem List (1) Schizophrenia, paranoid type Current Visit: Yes (2) Alcohol dependence Current Visit: Yes (3) Cocaine dependence Current Visit: Yes (4) Nicotine dependence Current Visit: Yes Qualifiers: Substance use status: in withdrawal (5) HTN (hypertension) Current Visit: Yes Qualifiers: Hypertension type: essential hypertension Qualified Code(s): I10 - Essential (primary) hypertension (6) History of syphilis Current Visit: No Initial treatment plan: 1) Discontinue Haldol and Cogentin. 2) Start Haldol 5 mg po stat, 5 mg po BID and Congentin 0.5 mg po BID. 3) Monitor progress
[2017-06-14] MEDS ORDERED: HALOPERIDOL 5 MG TABLET (FP) PO PRN (13:15)
[2017-06-14] MEDS ORDERED: HALOPERIDOL 5 MG TABLET (FP) PO ONE (13:42)
[2017-06-14] MEDS ORDERED: HALOPERIDOL 1 MG TABLET (FP) PO ONE (14:00)
[2017-06-14] MEDS: THIAMINE HCL 100 MG TABLET (FP) PO SCH (21:04)
[2017-06-14] MEDS: BENZTROPINE MESYLATE 0.5 MG TABLET (FP) PO SCH (21:05)
[2017-06-14] MEDS: hydrOXYzine PAMOATE 50 MG CAPSULE (FP) PO PRN (21:07)
[2017-06-15] MEDS: HALOPERIDOL 5 MG TABLET (FP) PO SCH ×2 (09:57→21:29)
[2017-06-15] MEDS: PRENATAL VITAMINS W/ FOLIC ACID TABLET (FP) PO SCH (09:57)
[2017-06-15] MEDS: amLODIPine BESYLATE 5 MG TABLET (FP) PO SCH (09:57)
[2017-06-15] MEDS: CITALOPRAM HYDROBROMIDE 20 MG TABLET (FP) PO SCH (09:57)
[2017-06-15] MEDS: NICOTINE 14 MG/24 HOURS TOPICAL PATCH TD SCH (09:58)
[2017-06-15] MEDS: BENZTROPINE MESYLATE 0.5 MG TABLET (FP) PO SCH ×2 (09:58→21:29)
[2017-06-15] MEDS ORDERED: PT OWN MED DRAWER 7, Y5N ONE (19:26)
[2017-06-15] MEDS: THIAMINE HCL 100 MG TABLET (FP) PO SCH (21:29)
[2017-06-16] MEDS: PRENATAL VITAMINS W/ FOLIC ACID TABLET (FP) PO SCH (10:05)
[2017-06-16] MEDS: amLODIPine BESYLATE 5 MG TABLET (FP) PO SCH (10:05)
[2017-06-16] MEDS: HALOPERIDOL 5 MG TABLET (FP) PO SCH ×2 (10:05→21:21)
[2017-06-16] MEDS: CITALOPRAM HYDROBROMIDE 20 MG TABLET (FP) PO SCH (10:05)
[2017-06-16] MEDS: NICOTINE 14 MG/24 HOURS TOPICAL PATCH TD SCH (10:06)
[2017-06-16] MEDS: BENZTROPINE MESYLATE 0.5 MG TABLET (FP) PO SCH (10:06)
[2017-06-16] MEDS: THIAMINE HCL 100 MG TABLET (FP) PO SCH (21:21)
[2017-06-16] MEDS: BENZTROPINE MESYLATE 1 MG TABLET (FP) PO SCH (21:22)
[2017-06-17] MEDS: HALOPERIDOL 5 MG TABLET (FP) PO SCH ×2 (09:46→21:19)
[2017-06-17] MEDS: BENZTROPINE MESYLATE 1 MG TABLET (FP) PO SCH ×2 (09:46→21:19)
[2017-06-17] MEDS: NICOTINE 14 MG/24 HOURS TOPICAL PATCH TD SCH (09:47)
[2017-06-17] MEDS: amLODIPine BESYLATE 5 MG TABLET (FP) PO SCH (09:47)
[2017-06-17] MEDS: CITALOPRAM HYDROBROMIDE 20 MG TABLET (FP) PO SCH (09:47)
[2017-06-17] MEDS: PRENATAL VITAMINS W/ FOLIC ACID TABLET (FP) PO SCH (09:48)
[2017-06-17] MEDS: THIAMINE HCL 100 MG TABLET (FP) PO SCH (21:19)
[2017-06-18] MEDS: PRENATAL VITAMINS W/ FOLIC ACID TABLET (FP) PO SCH (10:03)
[2017-06-18] MEDS: BENZTROPINE MESYLATE 1 MG TABLET (FP) PO SCH ×2 (10:03→21:16)
[2017-06-18] MEDS: HALOPERIDOL 5 MG TABLET (FP) PO SCH ×2 (10:03→21:16)
[2017-06-18] MEDS: amLODIPine BESYLATE 5 MG TABLET (FP) PO SCH (10:03)
[2017-06-18] MEDS: CITALOPRAM HYDROBROMIDE 20 MG TABLET (FP) PO SCH (10:03)
[2017-06-18] MEDS: NICOTINE 14 MG/24 HOURS TOPICAL PATCH TD SCH (10:04)
[2017-06-18] MEDS: THIAMINE HCL 100 MG TABLET (FP) PO SCH (21:16)
[2017-06-19] MEDS: BENZTROPINE MESYLATE 1 MG TABLET (FP) PO SCH ×2 (10:01→21:27)
[2017-06-19] MEDS: PRENATAL VITAMINS W/ FOLIC ACID TABLET (FP) PO SCH (10:01)
[2017-06-19] MEDS: CITALOPRAM HYDROBROMIDE 20 MG TABLET (FP) PO SCH (10:02)
[2017-06-19] MEDS: amLODIPine BESYLATE 5 MG TABLET (FP) PO SCH (10:02)
[2017-06-19] MEDS: HALOPERIDOL 5 MG TABLET (FP) PO SCH ×2 (10:02→21:27)
[2017-06-19] MEDS: NICOTINE 14 MG/24 HOURS TOPICAL PATCH TD SCH (10:02)
[2017-06-19] MEDS: THIAMINE HCL 100 MG TABLET (FP) PO SCH (21:27)
[2017-06-20] MEDS: HALOPERIDOL 5 MG TABLET (FP) PO SCH ×2 (09:46→21:12)
[2017-06-20] MEDS: amLODIPine BESYLATE 5 MG TABLET (FP) PO SCH (09:46)
[2017-06-20] MEDS: BENZTROPINE MESYLATE 1 MG TABLET (FP) PO SCH ×2 (09:46→21:12)
[2017-06-20] MEDS: CITALOPRAM HYDROBROMIDE 20 MG TABLET (FP) PO SCH (09:46)
[2017-06-20] MEDS: PRENATAL VITAMINS W/ FOLIC ACID TABLET (FP) PO SCH (09:47)
[2017-06-20] MEDS: NICOTINE 14 MG/24 HOURS TOPICAL PATCH TD SCH (09:47)
[2017-06-20] MEDS: THIAMINE HCL 100 MG TABLET (FP) PO SCH (21:12)
[2017-06-20] MEDS: hydrOXYzine PAMOATE 50 MG CAPSULE (FP) PO PRN (22:48)
[2017-06-21] MEDS: BENZTROPINE MESYLATE 1 MG TABLET (FP) PO SCH ×2 (09:19→21:19)
[2017-06-21] MEDS: HALOPERIDOL 5 MG TABLET (FP) PO SCH ×2 (09:20→21:19)
[2017-06-21] MEDS: PRENATAL VITAMINS W/ FOLIC ACID TABLET (FP) PO SCH (09:20)
[2017-06-21] MEDS: CITALOPRAM HYDROBROMIDE 20 MG TABLET (FP) PO SCH (09:20)
[2017-06-21] MEDS: amLODIPine BESYLATE 5 MG TABLET (FP) PO SCH (09:20)
[2017-06-21] MEDS: NICOTINE 14 MG/24 HOURS TOPICAL PATCH TD SCH (09:20)
[2017-06-21] MEDS: THIAMINE HCL 100 MG TABLET (FP) PO SCH (21:19)
[2017-06-22] MEDS: PRENATAL VITAMINS W/ FOLIC ACID TABLET (FP) PO SCH (10:08)
[2017-06-22] MEDS: BENZTROPINE MESYLATE 1 MG TABLET (FP) PO SCH ×2 (10:08→21:20)
[2017-06-22] MEDS: amLODIPine BESYLATE 5 MG TABLET (FP) PO SCH (10:08)
[2017-06-22] MEDS: HALOPERIDOL 5 MG TABLET (FP) PO SCH ×2 (10:08→21:20)
[2017-06-22] MEDS: CITALOPRAM HYDROBROMIDE 20 MG TABLET (FP) PO SCH (10:08)
[2017-06-22] MEDS: NICOTINE 14 MG/24 HOURS TOPICAL PATCH TD SCH (10:38)
[2017-06-22] MEDS: THIAMINE HCL 100 MG TABLET (FP) PO SCH (21:20)
[2017-06-23] MEDS: BENZTROPINE MESYLATE 1 MG TABLET (FP) PO SCH ×2 (09:54→21:22)
[2017-06-23] MEDS: HALOPERIDOL 5 MG TABLET (FP) PO SCH ×2 (09:54→21:22)
[2017-06-23] MEDS: amLODIPine BESYLATE 5 MG TABLET (FP) PO SCH (09:54)
[2017-06-23] MEDS: PRENATAL VITAMINS W/ FOLIC ACID TABLET (FP) PO SCH (09:54)
[2017-06-23] MEDS: CITALOPRAM HYDROBROMIDE 20 MG TABLET (FP) PO SCH (09:54)
[2017-06-23] MEDS: NICOTINE 14 MG/24 HOURS TOPICAL PATCH TD SCH (09:55)
[2017-06-23] MEDS: THIAMINE HCL 100 MG TABLET (FP) PO SCH (21:22)
[2017-06-24 07:11] VITALS: TEMP 97.8
--- NOTE | 2017-06-24 09:05 | PN ---
Psychiatric Progress Note Vital Signs: Vital Signs Period Temp Pulse Resp BP Sys/Diego Pulse Ox Last 24 Hr 97.8 F 87 16-18 126/77 Date of Session: 06/24/17 Chief Complaint:: Discharge visit HPI: Patient addressed Alcohol and Cocaine dependence comorbid with Schizophrenia.Paranoid type. ROS: Significant for Hypertiension. Current Medications: Active Medications Generic Name Dose Route Start Last Admin Trade Name Freq PRN Reason Stop Dose Admin Acetaminophen 650 mg 06/10/17 12:32 06/18/17 10:05 Tylenol - PO 650 mg Q4H PRN Administration PAIN Al Hydroxide/Mg Hydroxide 30 ml 06/10/17 12:32 Mylanta Oral Suspension - PO Q6H PRN DYSPEPSIA Amlodipine Besylate 5 mg 06/10/17 14:45 06/23/17 09:54 Norvasc - PO 5 mg DAILY GURJIT Administration Benztropine Mesylate 0.5 mg 06/16/17 22:00 06/23/17 21:22 Cogentin - PO 0.5 mg BID GURJIT Administration Citalopram Hydrobromide 20 mg 06/11/17 10:00 06/23/17 09:54 Celexa - PO 20 mg DAILY GURJIT Administration Eucalyptus/Menthol/Phenol/Sorbitol 1 each 06/10/17 12:32 Cepastat Lozenge - MM Q4H PRN SORE THROAT Guaifenesin 10 ml 06/10/17 12:32 Robitussin Dm - PO Q6H PRN COUGH Haloperidol 5 mg 06/14/17 22:00 06/23/17 21:22 Haldol - PO 5 mg BID GURJIT Administration Hydroxyzine Pamoate 50 mg 06/10/17 12:32 06/20/17 22:48 Vistaril - PO 50 mg Q4H PRN Administration AGITATION Loperamide HCl 4 mg 06/10/17 12:32 Imodium - PO Q6H PRN DIARRHEA Magnesium Citrate 300 ml 06/10/17 12:32 Citroma - PO Q48H PRN CONSTIPATION Magnesium Hydroxide 30 ml 06/10/17 12:32 Milk Of Magnesia - PO DAILY PRN CONSTIPATION Nicotine 14 mg 06/10/17 13:43 06/23/17 09:55 Nicoderm Patch - TD Not Given DAILY GURJIT Nicotine Polacrilex 2 mg 06/10/17 12:32 Nicorette Gum - BUC Q2H PRN NICOTINE REPLACEMENT RX Multivit/Folic Acid/Iron 1 tab 06/11/17 10:00 06/23/17 09:54 Vitamins (Sjr) - PO 1 tab DAILY GURJIT Administration Pseudoephedrine/Triprolidine 1 combo 06/10/17 12:32 Actifed - PO TID PRN NASAL CONGESTION Thiamine HCl 100 mg 06/10/17 22:00 06/23/17 21:22 Vitamin B1 - PO 100 mg HS GURJIT Administration Current Side Effect: No Lab tests ordered: No Lab tests reviewed: Yes Provider note:: Patient completed this program today.She has met her treatment goals and will continue to asddressed her issues on outpatient basisd at [facility] in [place](patient resides in [place] with her sons).Patient continues to find that current medications(Haldol 5 mg po bid, Cogentin 0,5 mg po bid and Celexa 20 mg po daily) help to cope with mood instability,depression,insomnia,auditory hallucinations.Scrips for 30 days provided. Patient identifies areas of difficulties,behaviors which contribute to relapse.Support system,coping skills utilizatin has been discussed as well. patient is stable for discharge today. Total face to face time:: 30 Mental Status Exam - Mental Status Exam Alert and Oriented to: Time, Place, Person Cognitive Function: Grossly Intact Patient Appearance: Well Groomed Mood: Hopeful, Euthymic Affect: Appropriate, Mood Congruent Patient Behavior: Cooperative Speech Pattern: Clear Voice Loudness: Normal Thought Process: Goal Oriented Thought Disorder: Being Controlled Hallucinations: Denies Suicidal Ideation: Denies Homicidal Ideation: Denies Insight/Judgement: Fair Sleep: Fair Appetite: Good Muscle strength/Tone: Normal Gait/Station: Normal Psychiatric Treatment Plan - Problem List (1) Nicotine dependence Current Visit: Yes Qualifiers: Substance use status: in withdrawal (2) Cocaine dependence Current Visit: Yes (3) HTN (hypertension) Current Visit: Yes Qualifiers: Hypertension type: essential hypertension Qualified Code(s): I10 - Essential (primary) hypertension (4) History of syphilis Current Visit: Yes (5) Schizophrenia, paranoid type Current Visit: Yes (6) Alcohol dependence Current Visit: Yes
[2017-06-24 09:19] VITALS: BP 117/74; PULSE 76
[2017-06-24] MEDS: PRENATAL VITAMINS W/ FOLIC ACID TABLET (FP) PO SCH (09:58)
[2017-06-24] MEDS: CITALOPRAM HYDROBROMIDE 20 MG TABLET (FP) PO SCH (09:58)
[2017-06-24] MEDS: NICOTINE 14 MG/24 HOURS TOPICAL PATCH TD SCH (09:58)
[2017-06-24] MEDS: amLODIPine BESYLATE 5 MG TABLET (FP) PO SCH (09:59)
[2017-06-24] MEDS: BENZTROPINE MESYLATE 1 MG TABLET (FP) PO SCH (09:59)
[2017-06-24] MEDS: HALOPERIDOL 5 MG TABLET (FP) PO SCH (09:59)
== END 2017-06-24 10:00 | disposition home or self-care (01) | DRG 772 ==
LOC: YASAS 11:12 → Y3E 12:30
PROVIDERS: ADMIT Psychiatry & Neurology Psychiatry; ATTEND Psychiatry & Neurology Psychiatry
PROC: HZ42ZZZ Group Counseling for Substance Abuse Treatment, Cognitive-Behavioral (ICD-10-PCS; principal; 2017-06-10)
DX: F10.20 Alcohol dependence, uncomplicated (principal); F14.20 Cocaine dependence, uncomplicated; F17.210 Nicotine dependence, cigarettes, uncomplicated; F20.0 Paranoid schizophrenia; F32.9 Major depressive disorder, single episode, unspecified; Z87.42 Personal history of other diseases of the female genital tract; Z91.5 Personal history of self-harm
CPT/HCPCS: 36415; 80053; 81003; 81015; 85027; 86593; 93005; 93010

== ENCOUNTER 2022-09-12 15:15 | Inpatient (IN) | payer BC ==
[2022-09-12 15:40] VITALS: BMI 30.7
[2022-09-12] MEDS ORDERED: BENZOCAINE/MENTHOL (CHLORASEPTIC ) LOZENGE MM PRN (17:24)
[2022-09-12] MEDS ORDERED: DICYCLOMINE HCL 10 MG CAPSULE PO PRN (17:24)
[2022-09-12] MEDS ORDERED: MAGNESIUM HYDROX 2400MG/30ML ORAL SUSPENSION 30 ML CUP PO PRN (17:24)
[2022-09-12] MEDS ORDERED: POLYETHYLENE GLYCOL (HEALTHYLAX) 3350 17 GM PACKET PO PRN (17:24)
[2022-09-12] MEDS ORDERED: LOPERAMIDE HCL 2 MG CAPSULE PO PRN (17:24)
[2022-09-12] MEDS ORDERED: ACETAMINOPHEN 325 MG TABLET (FP) PO PRN ×2 (17:24)
[2022-09-12] MEDS ORDERED: ONDANSETRON *ODT* 4 MG TABLET SL PRN (17:24)
[2022-09-12] MEDS ORDERED: MAG HYDROX/AL HYDROX/SIMETH 30 ML UNIT-DOSE CUP PO PRN (17:24)
[2022-09-12] MEDS ORDERED: NALOXONE HCL (KLOXXADO) 8 MG SPRAY NS PRN (17:24)
[2022-09-12] MEDS ORDERED: hydrOXYzine PAMOATE 25 MG CAPSULE (FP) PO PRN (17:24)
[2022-09-12] MEDS: THIAMINE HCL 100 MG TABLET (FP) PO SCH (23:45)
[2022-09-12] MEDS: MELATONIN 5 MG TABLETS PO SCH (23:45)
[2022-09-13] MEDS: PRENATAL VITAMINS W/ FOLIC ACID TABLET (FP) PO SCH (10:36)
[2022-09-13] MEDS: amLODIPine BESYLATE 5 MG TABLET (FP) PO SCH (10:36)
[2022-09-13] MEDS: BENZTROPINE MESYLATE 1 MG TABLET PO SCH ×2 (10:36→22:56)
[2022-09-13] MEDS: SERTRALINE HCL 50 MG TABLET (FP) PO SCH (10:36)
[2022-09-13] MEDS: HALOPERIDOL 5 MG TABLET PO SCH ×2 (11:24→22:56)
[2022-09-13] MEDS: MELATONIN 5 MG TABLETS PO SCH (22:56)
[2022-09-13] MEDS: THIAMINE HCL 100 MG TABLET (FP) PO SCH (22:56)
[2022-09-14 09:48] VITALS: BP 153/99; PULSE 65; RESP 17; TEMP 97.4
[2022-09-14] MEDS: SERTRALINE HCL 50 MG TABLET (FP) PO SCH (10:39)
[2022-09-14] MEDS: HALOPERIDOL 5 MG TABLET PO SCH (10:39)
[2022-09-14] MEDS: PRENATAL VITAMINS W/ FOLIC ACID TABLET (FP) PO SCH (10:39)
[2022-09-14] MEDS: amLODIPine BESYLATE 5 MG TABLET (FP) PO SCH (10:40)
[2022-09-14] MEDS: BENZTROPINE MESYLATE 1 MG TABLET PO SCH (10:40)
== END 2022-09-14 12:35 | disposition home or self-care (01) | DRG 774 ==
LOC: YASAS 15:15 → Y6N 23:01
PROVIDERS: ADMIT Allergy & Immunology; ATTEND Surgery
PROC: HZ2ZZZZ Detoxification Services for Substance Abuse Treatment (ICD-10-PCS; principal; 2022-09-12)
DX: F10.230 Alcohol dependence with withdrawal, uncomplicated (principal); F14.20 Cocaine dependence, uncomplicated; F25.1 Schizoaffective disorder, depressive type; F19.24 Other psychoactive substance dependence with psychoactive substance-induced mood disorder; I10 Essential (primary) hypertension; Z87.891 Personal history of nicotine dependence; Z86.19 Personal history of other infectious and parasitic diseases; Z88.6 Allergy status to analgesic agent; Z91.013 Allergy to seafood
CPT/HCPCS: 87811; 93005; 93010; C9803-CS; U0003; U0005

== ENCOUNTER 2023-01-05 10:44 | Inpatient (IN) | payer BC ==
[2023-01-05 10:54] VITALS: BMI 31.3
[2023-01-05] MEDS ORDERED: MAG HYDROX/AL HYDROX/SIMETH 30 ML UNIT-DOSE CUP PO PRN (11:10)
[2023-01-05] MEDS ORDERED: BENZOCAINE/MENTHOL (CHLORASEPTIC ) LOZENGE MM PRN (11:10)
[2023-01-05] MEDS ORDERED: METHOCARBAMOL 500 MG TABLET PO PRN (11:10)
[2023-01-05] MEDS ORDERED: POLYETHYLENE GLYCOL (HEALTHYLAX) 3350 17 GM PACKET PO PRN (11:10)
[2023-01-05] MEDS ORDERED: BENZONATATE 200 MG CAPSULE PO PRN (11:10)
[2023-01-05] MEDS ORDERED: IBUPROFEN 400 MG TABLET (FP) PO PRN (11:10)
[2023-01-05] MEDS ORDERED: COLLOIDAL OATMEAL 1 BAR EACH TP PRN (11:10)
[2023-01-05] MEDS ORDERED: IBUPROFEN 600 MG TABLET (FP) PO PRN (11:10)
[2023-01-05] MEDS ORDERED: NICOTINE POLACRILEX 2 MG GUM BUC PRN (11:10)
[2023-01-05] MEDS ORDERED: MAGNESIUM HYDROX 2400MG/30ML ORAL SUSPENSION 30 ML CUP PO PRN (11:10)
[2023-01-05] MEDS ORDERED: LOPERAMIDE HCL 2 MG CAPSULE PO PRN (11:10)
[2023-01-05] MEDS ORDERED: ONDANSETRON *ODT* 4 MG TABLET SL PRN (11:10)
[2023-01-05] MEDS ORDERED: guaiFENesin 600 MG TABLET.ER (FP) PO PRN (11:10)
[2023-01-05] MEDS ORDERED: NALOXONE HCL (KLOXXADO) 8 MG SPRAY NS PRN (11:10)
[2023-01-05] MEDS ORDERED: DICYCLOMINE HCL 10 MG CAPSULE PO PRN (11:10)
[2023-01-05] MEDS ORDERED: NICOTINE 10 MG CARTRIDGE (INHALER) IH PRN (11:10)
[2023-01-05] MEDS ORDERED: AMMONIUM LACTATE 12% LOTION 225 GM BOTTLE TP PRN (11:10)
[2023-01-05] MEDS ORDERED: ACETAMINOPHEN 325 MG TABLET (FP) PO PRN (11:10)
[2023-01-05] MEDS ORDERED: NALOXONE HCL 0.4 MG/ML VIAL IM PRN (11:10)
[2023-01-05] MEDS ORDERED: amLODIPine BESYLATE 5 MG TABLET (FP) PO SCH (11:15)
[2023-01-05] MEDS ORDERED: chlordiazePOXIDE HCL 25 MG CAPSULE ONE (11:45)
[2023-01-05] MEDS ORDERED: amLODIPine BESYLATE 5 MG TABLET (FP) ONE (11:46)
[2023-01-05] MEDS ORDERED: PRENATAL VITAMINS W/ FOLIC ACID TABLET (FP) PO ONE (11:46)
[2023-01-05] MEDS: chlordiazePOXIDE HCL 25 MG CAPSULE PO SCH ×3 (11:52→22:26)
[2023-01-05] MEDS: THIAMINE HCL 100 MG TABLET (FP) PO SCH (22:25)
[2023-01-05] MEDS: MELATONIN 5 MG TABLETS PO SCH (22:25)
[2023-01-06] MEDS: chlordiazePOXIDE HCL 25 MG CAPSULE PO SCH ×4 (05:37→22:19)
[2023-01-06] MEDS: PRENATAL VITAMINS W/ FOLIC ACID TABLET (FP) PO SCH (10:26)
[2023-01-06] MEDS: amLODIPine BESYLATE 10 MG TABLET (FP) PO SCH (10:27)
[2023-01-06] MEDS: HALOPERIDOL 5 MG TABLET PO SCH ×2 (11:13→22:19)
[2023-01-06] MEDS: SERTRALINE HCL 50 MG TABLET (FP) PO SCH (11:13)
[2023-01-06] MEDS: BENZTROPINE MESYLATE 1 MG TABLET PO SCH ×2 (11:31→22:18)
[2023-01-06 15:10] LABS: HEMATOCRIT 40.5 % (32.4-45.2); HEMOGLOBIN 13.1 GM/dL (10.7-15.3); MCH 28.5 pg (25.7-33.7); MCHC 32.4 g/dl (32.0-36.0); MEAN CELL VOLUME 87.8 fl (80-96); MEAN PLT VOLUME 8.8 fl (7.5-11.1); PLATELET COUNT 195 10^3/uL (134-434); RBC 4.61 M/mm3 (3.60-5.2); RDW 14.9 % (11.6-15.6); WHITE BLOOD COUNT 4.2 K/mm3 (4.0-10.0)
[2023-01-06 15:28] LABS: POTASSIUM 3.7 mmol/L (3.5-5.1)
[2023-01-06 15:30] LABS: ALBUMIN 3.4 g/dl (3.4-5.0)
[2023-01-06 15:31] LABS: BLOOD UREA NITROGEN 16.3 mg/dL (7-18)
[2023-01-06 15:35] LABS: BILIRUBIN,TOTAL 0.3 mg/dL (0.2-1); TOT PROT 6.6 g/dl (6.4-8.2)
[2023-01-06] MEDS: THIAMINE HCL 100 MG TABLET (FP) PO SCH (22:18)
[2023-01-06] MEDS: MELATONIN 5 MG TABLETS PO SCH (22:20)
[2023-01-07] MEDS: chlordiazePOXIDE HCL 25 MG CAPSULE PO SCH ×4 (05:38→22:30)
[2023-01-07] MEDS: BENZTROPINE MESYLATE 1 MG TABLET PO SCH ×2 (10:05→22:29)
[2023-01-07] MEDS: SERTRALINE HCL 50 MG TABLET (FP) PO SCH (10:05)
[2023-01-07] MEDS: amLODIPine BESYLATE 10 MG TABLET (FP) PO SCH (10:06)
[2023-01-07] MEDS: PRENATAL VITAMINS W/ FOLIC ACID TABLET (FP) PO SCH (10:06)
[2023-01-07] MEDS: HALOPERIDOL 5 MG TABLET PO SCH ×2 (10:36→22:30)
[2023-01-07] MEDS: LACTULOSE 20 GM/30 ML UDC (FOR ORAL USE ONLY) PO SCH ×3 (13:19→22:29)
[2023-01-07] MEDS: THIAMINE HCL 100 MG TABLET (FP) PO SCH (22:30)
[2023-01-07] MEDS: MELATONIN 5 MG TABLETS PO SCH (22:30)
[2023-01-08] MEDS: chlordiazePOXIDE HCL 10 MG CAPSULE PO SCH ×2 (05:25→10:10)
[2023-01-08] MEDS: LACTULOSE 20 GM/30 ML UDC (FOR ORAL USE ONLY) PO SCH ×2 (10:08→13:17)
[2023-01-08] MEDS: amLODIPine BESYLATE 10 MG TABLET (FP) PO SCH (10:09)
[2023-01-08] MEDS: HALOPERIDOL 5 MG TABLET PO SCH (10:09)
[2023-01-08] MEDS: PRENATAL VITAMINS W/ FOLIC ACID TABLET (FP) PO SCH (10:09)
[2023-01-08] MEDS: BENZTROPINE MESYLATE 1 MG TABLET PO SCH (10:09)
[2023-01-08] MEDS: SERTRALINE HCL 50 MG TABLET (FP) PO SCH (10:09)
[2023-01-08 12:41] VITALS: BP 130/85; PULSE 81; RESP 16; TEMP 98
[2023-01-09] MEDS ORDERED: chlordiazePOXIDE HCL 10 MG CAPSULE PO SCH (05:00)
[2023-01-10] MEDS ORDERED: chlordiazePOXIDE HCL 10 MG CAPSULE PO ONE (05:00)
== END 2023-01-08 15:16 | disposition home or self-care (01) | DRG 774 ==
LOC: YASAS 10:44 → Y6N 11:16
PROVIDERS: ADMIT Allergy & Immunology; ATTEND Surgery
PROC: HZ2ZZZZ Detoxification Services for Substance Abuse Treatment (ICD-10-PCS; principal; 2023-01-05)
DX: F10.230 Alcohol dependence with withdrawal, uncomplicated (principal); F14.20 Cocaine dependence, uncomplicated; F12.20 Cannabis dependence, uncomplicated; F17.210 Nicotine dependence, cigarettes, uncomplicated; F25.1 Schizoaffective disorder, depressive type; I10 Essential (primary) hypertension; R79.89 Other specified abnormal findings of blood chemistry; Z62.810 Personal history of physical and sexual abuse in childhood; Z86.19 Personal history of other infectious and parasitic diseases; Z88.6 Allergy status to analgesic agent; Z91.013 Allergy to seafood
CPT/HCPCS: 36415; 80053; 82140; 85027; 86593; 86780; 87635; 87811

== ENCOUNTER 2023-02-12 16:15 | Inpatient (IN) | payer BC ==
[2023-02-12 16:41] VITALS: BMI 29.0
[2023-02-12] MEDS ORDERED: POLYETHYLENE GLYCOL (HEALTHYLAX) 3350 17 GM PACKET PO PRN (17:02)
[2023-02-12] MEDS ORDERED: METHOCARBAMOL 500 MG TABLET PO PRN (17:02)
[2023-02-12] MEDS ORDERED: MAGNESIUM HYDROX 2400MG/30ML ORAL SUSPENSION 30 ML CUP PO PRN (17:02)
[2023-02-12] MEDS ORDERED: BENZOCAINE/MENTHOL (CHLORASEPTIC ) LOZENGE MM PRN (17:02)
[2023-02-12] MEDS ORDERED: hydrOXYzine PAMOATE 25 MG CAPSULE (FP) PO PRN (17:02)
[2023-02-12] MEDS ORDERED: guaiFENesin 600 MG TABLET.ER (FP) PO PRN (17:02)
[2023-02-12] MEDS ORDERED: P-EPHED 60MG/TRIPROLIDI 2.5MG TABLET PO PRN (17:02)
[2023-02-12] MEDS ORDERED: ACETAMINOPHEN 325 MG TABLET (FP) PO PRN (17:02)
[2023-02-12] MEDS ORDERED: BENZONATATE 200 MG CAPSULE PO PRN (17:02)
[2023-02-12] MEDS ORDERED: MAG HYDROX/AL HYDROX/SIMETH 30 ML UNIT-DOSE CUP PO PRN (17:02)
[2023-02-12] MEDS ORDERED: ONDANSETRON *ODT* 4 MG TABLET SL PRN (17:02)
[2023-02-12] MEDS ORDERED: DICYCLOMINE HCL 10 MG CAPSULE PO PRN (17:02)
[2023-02-12] MEDS ORDERED: LOPERAMIDE HCL 2 MG CAPSULE PO PRN (17:02)
[2023-02-12] MEDS ORDERED: amLODIPine BESYLATE 5 MG TABLET (FP) ONE (17:11)
[2023-02-12] MEDS: amLODIPine BESYLATE 5 MG TABLET (FP) PO SCH (17:14)
[2023-02-12] MEDS ORDERED: amLODIPine BESYLATE 10 MG TABLET (FP) PO SCH (17:15)
[2023-02-12] MEDS: THIAMINE HCL 100 MG TABLET (FP) PO SCH (22:27)
[2023-02-12] MEDS: MELATONIN 5 MG TABLETS PO SCH (22:27)
[2023-02-13] MEDS: PRENATAL VITAMINS W/ FOLIC ACID TABLET (FP) PO SCH (10:24)
[2023-02-13] MEDS: BENZTROPINE MESYLATE 1 MG TABLET PO SCH ×2 (10:25→22:20)
[2023-02-13] MEDS: amLODIPine BESYLATE 5 MG TABLET (FP) PO SCH (10:25)
[2023-02-13] MEDS: HALOPERIDOL 5 MG TABLET PO SCH ×2 (10:25→22:20)
[2023-02-13] MEDS: SERTRALINE HCL 50 MG TABLET (FP) PO SCH (10:26)
[2023-02-13 10:35] LABS: HEMATOCRIT 43.4 % (32.4-45.2); HEMOGLOBIN 14.1 GM/dL (10.7-15.3); MCH 28.5 pg (25.7-33.7); MCHC 32.4 g/dl (32.0-36.0); MEAN CELL VOLUME 87.9 fl (80-96); MEAN PLT VOLUME 8.4 fl (7.5-11.1); PLATELET COUNT 266 10^3/uL (134-434); RBC 4.93 M/mm3 (3.60-5.2); RDW 14.4 % (11.6-15.6)
[2023-02-13] MEDS ORDERED: HALOPERIDOL DECANOATE 100 MG/ML IM ONE (11:00)
[2023-02-13 11:18] LABS: POTASSIUM 4.8 mmol/L (3.5-5.1)
[2023-02-13 11:25] LABS: ALBUMIN 3.7 g/dl (3.4-5.0); BLOOD UREA NITROGEN 12.8 mg/dL (7-18); CALCIUM 8.9 mg/dL (8.5-10.1)
[2023-02-13 11:28] LABS: BILIRUBIN,TOTAL 0.2 mg/dL (0.2-1); TOT PROT 7.1 g/dl (6.4-8.2)
[2023-02-13] MEDS: THIAMINE HCL 100 MG TABLET (FP) PO SCH (22:20)
[2023-02-13] MEDS: MELATONIN 5 MG TABLETS PO SCH (22:21)
[2023-02-14 09:29] VITALS: BP 141/72; PULSE 69; RESP 17; TEMP 98
[2023-02-14] MEDS: HALOPERIDOL 5 MG TABLET PO SCH (09:58)
[2023-02-14] MEDS: amLODIPine BESYLATE 5 MG TABLET (FP) PO SCH (09:58)
[2023-02-14] MEDS: PRENATAL VITAMINS W/ FOLIC ACID TABLET (FP) PO SCH (09:59)
[2023-02-14] MEDS: BENZTROPINE MESYLATE 1 MG TABLET PO SCH (09:59)
[2023-02-14] MEDS: SERTRALINE HCL 50 MG TABLET (FP) PO SCH (09:59)
== END 2023-02-14 10:10 | disposition home or self-care (01) | DRG 774 ==
LOC: YASAS 16:15 → Y6N 17:10
PROVIDERS: ADMIT Allergy & Immunology; ATTEND Surgery
PROC: HZ2ZZZZ Detoxification Services for Substance Abuse Treatment (ICD-10-PCS; principal; 2023-02-12)
DX: F10.230 Alcohol dependence with withdrawal, uncomplicated (principal); F14.20 Cocaine dependence, uncomplicated; F12.20 Cannabis dependence, uncomplicated; F17.210 Nicotine dependence, cigarettes, uncomplicated; F25.1 Schizoaffective disorder, depressive type; F19.282 Other psychoactive substance dependence with psychoactive substance-induced sleep disorder; F19.24 Other psychoactive substance dependence with psychoactive substance-induced mood disorder; I10 Essential (primary) hypertension; Z62.810 Personal history of physical and sexual abuse in childhood; Z86.19 Personal history of other infectious and parasitic diseases
CPT/HCPCS: 36415; 80053; 85027; 86593; 86780; 87635; 87811

== ENCOUNTER 2023-05-01 14:31 | Inpatient (IN) | payer BC ==
[2023-05-01 15:27] VITALS: BMI 29.9
[2023-05-01] MEDS ORDERED: P-EPHED 60MG/TRIPROLIDI 2.5MG TABLET PO PRN (21:50)
[2023-05-01] MEDS ORDERED: BENZOCAINE/MENTHOL (CHLORASEPTIC ) LOZENGE MM PRN (21:50)
[2023-05-01] MEDS ORDERED: MAGNESIUM HYDROX 2400MG/30ML ORAL SUSPENSION 30 ML CUP PO PRN (21:50)
[2023-05-01] MEDS ORDERED: POLYETHYLENE GLYCOL (HEALTHYLAX) 3350 17 GM PACKET PO PRN (21:50)
[2023-05-01] MEDS ORDERED: NICOTINE POLACRILEX 2 MG GUM BUC PRN (21:50)
[2023-05-01] MEDS ORDERED: LOPERAMIDE HCL 2 MG CAPSULE PO PRN (21:50)
[2023-05-01] MEDS ORDERED: hydrOXYzine PAMOATE 25 MG CAPSULE (FP) PO PRN (21:50)
[2023-05-01] MEDS ORDERED: COLLOIDAL OATMEAL 1 BAR EACH TP PRN (21:50)
[2023-05-01] MEDS ORDERED: BENZONATATE 200 MG CAPSULE PO PRN (21:50)
[2023-05-01] MEDS ORDERED: MAG HYDROX/AL HYDROX/SIMETH 30 ML UNIT-DOSE CUP PO PRN (21:50)
[2023-05-01] MEDS ORDERED: guaiFENesin 600 MG TABLET.ER (FP) PO PRN (21:50)
[2023-05-01] MEDS: THIAMINE HCL 100 MG TABLET (FP) PO SCH (23:56)
[2023-05-01] MEDS: MELATONIN 5 MG TABLETS PO SCH (23:56)
[2023-05-02] MEDS: PRENATAL VITAMINS W/ FOLIC ACID TABLET (FP) PO SCH (10:37)
[2023-05-02] MEDS: SERTRALINE HCL 50 MG TABLET (FP) PO SCH (10:59)
[2023-05-02] MEDS: amLODIPine BESYLATE 10 MG TABLET (FP) PO SCH (10:59)
[2023-05-02] MEDS: HALOPERIDOL 5 MG TABLET PO SCH ×2 (10:59→21:46)
[2023-05-02] MEDS: BENZTROPINE MESYLATE 1 MG TABLET PO SCH ×2 (11:00→21:47)
[2023-05-02 12:17] LABS: HEMOGLOBIN 11.7 GM/dL (10.7-15.3); MCH 28.8 pg (25.7-33.7); MCHC 33.5 g/dl (32.0-36.0); MEAN CELL VOLUME 86.1 fl (80-96); MEAN PLT VOLUME 8.4 fl (7.5-11.1); PLATELET COUNT 225 10^3/uL (134-434); RBC 4.07 M/mm3 (3.60-5.2); RDW 13.8 % (11.6-15.6); WHITE BLOOD COUNT 2.8 K/mm3 (4.0-10.0)
[2023-05-02 12:29] LABS: CALCIUM 8.5 mg/dL (8.5-10.1)
[2023-05-02 12:30] LABS: ALBUMIN 3.3 g/dl (3.4-5.0)
[2023-05-02 12:34] LABS: CREATININE 1.2 mg/dL (0.55-1.3); TOT PROT 6.2 g/dl (6.4-8.2)
[2023-05-02 12:36] LABS: BILIRUBIN,TOTAL 0.4 mg/dL (0.2-1)
[2023-05-02] MEDS: THIAMINE HCL 100 MG TABLET (FP) PO SCH (21:46)
[2023-05-02] MEDS: MELATONIN 5 MG TABLETS PO SCH (21:47)
[2023-05-03] MEDS: PRENATAL VITAMINS W/ FOLIC ACID TABLET (FP) PO SCH (10:01)
[2023-05-03] MEDS: HALOPERIDOL 5 MG TABLET PO SCH ×2 (10:01→21:32)
[2023-05-03] MEDS: amLODIPine BESYLATE 10 MG TABLET (FP) PO SCH (10:02)
[2023-05-03] MEDS: SERTRALINE HCL 50 MG TABLET (FP) PO SCH (10:02)
[2023-05-03] MEDS: BENZTROPINE MESYLATE 1 MG TABLET PO SCH ×2 (10:02→21:32)
[2023-05-03] MEDS: THIAMINE HCL 100 MG TABLET (FP) PO SCH (21:32)
[2023-05-03] MEDS: MELATONIN 5 MG TABLETS PO SCH (21:32)
[2023-05-04] MEDS: HALOPERIDOL 5 MG TABLET PO SCH ×2 (10:27→21:37)
[2023-05-04] MEDS: BENZTROPINE MESYLATE 1 MG TABLET PO SCH ×2 (10:27→21:37)
[2023-05-04] MEDS: SERTRALINE HCL 50 MG TABLET (FP) PO SCH (10:27)
[2023-05-04] MEDS: amLODIPine BESYLATE 10 MG TABLET (FP) PO SCH (10:28)
[2023-05-04] MEDS: PRENATAL VITAMINS W/ FOLIC ACID TABLET (FP) PO SCH (10:28)
[2023-05-04 15:23] LABS: PH,URINE 6.5 (5.0-8.0); URINE APPEARANCE CLEAR; URINE BILIRUBIN NEGATIVE (NEGATIVE); URINE COLOR YELLOW; URINE GLUCOSE (UA) NEGATIVE (NEGATIVE); URINE KETONE NEGATIVE (NEGATIVE); URINE LEUK ESTERASE NEGATIVE (NEGATIVE); URINE NITRITE NEGATIVE (NEGATIVE); URINE PROTEIN NEGATIVE (NEGATIVE); URINE UROBILINOGEN 0.2 mg/dL (0.2-1.0)
[2023-05-04] MEDS: MELATONIN 5 MG TABLETS PO SCH (21:37)
[2023-05-04] MEDS: THIAMINE HCL 100 MG TABLET (FP) PO SCH (21:37)
[2023-05-05] MEDS: PRENATAL VITAMINS W/ FOLIC ACID TABLET (FP) PO SCH (10:00)
[2023-05-05] MEDS: HALOPERIDOL 5 MG TABLET PO SCH ×2 (10:02→21:22)
[2023-05-05] MEDS: SERTRALINE HCL 50 MG TABLET (FP) PO SCH (10:02)
[2023-05-05] MEDS: amLODIPine BESYLATE 10 MG TABLET (FP) PO SCH (10:02)
[2023-05-05] MEDS: BENZTROPINE MESYLATE 1 MG TABLET PO SCH ×2 (10:03→21:23)
[2023-05-05] MEDS: THIAMINE HCL 100 MG TABLET (FP) PO SCH (21:22)
[2023-05-05] MEDS: MELATONIN 5 MG TABLETS PO SCH (21:23)
[2023-05-06] MEDS: HALOPERIDOL 5 MG TABLET PO SCH ×2 (10:02→21:09)
[2023-05-06] MEDS: PRENATAL VITAMINS W/ FOLIC ACID TABLET (FP) PO SCH (10:02)
[2023-05-06] MEDS: amLODIPine BESYLATE 10 MG TABLET (FP) PO SCH (10:02)
[2023-05-06] MEDS: BENZTROPINE MESYLATE 1 MG TABLET PO SCH ×2 (10:02→21:09)
[2023-05-06] MEDS: SERTRALINE HCL 50 MG TABLET (FP) PO SCH (10:02)
[2023-05-06] MEDS: MELATONIN 5 MG TABLETS PO SCH (21:09)
[2023-05-06] MEDS: THIAMINE HCL 100 MG TABLET (FP) PO SCH (21:09)
[2023-05-07] MEDS: SERTRALINE HCL 50 MG TABLET (FP) PO SCH (10:19)
[2023-05-07] MEDS: PRENATAL VITAMINS W/ FOLIC ACID TABLET (FP) PO SCH (10:19)
[2023-05-07] MEDS: amLODIPine BESYLATE 10 MG TABLET (FP) PO SCH (10:19)
[2023-05-07] MEDS: HALOPERIDOL 5 MG TABLET PO SCH ×2 (10:19→21:19)
[2023-05-07] MEDS: BENZTROPINE MESYLATE 1 MG TABLET PO SCH ×2 (10:20→21:18)
[2023-05-07] MEDS: MELATONIN 5 MG TABLETS PO SCH (21:19)
[2023-05-07] MEDS: THIAMINE HCL 100 MG TABLET (FP) PO SCH (21:19)
[2023-05-08] MEDS: PRENATAL VITAMINS W/ FOLIC ACID TABLET (FP) PO SCH (10:21)
[2023-05-08] MEDS: amLODIPine BESYLATE 10 MG TABLET (FP) PO SCH (10:21)
[2023-05-08] MEDS: HALOPERIDOL 5 MG TABLET PO SCH ×2 (10:21→21:17)
[2023-05-08] MEDS: SERTRALINE HCL 50 MG TABLET (FP) PO SCH (10:21)
[2023-05-08] MEDS: BENZTROPINE MESYLATE 1 MG TABLET PO SCH ×2 (10:21→21:16)
[2023-05-08] MEDS: ACETAMINOPHEN 325 MG TABLET (FP) PO PRN (10:22)
[2023-05-08] MEDS: THIAMINE HCL 100 MG TABLET (FP) PO SCH (21:17)
[2023-05-08] MEDS: MELATONIN 5 MG TABLETS PO SCH (21:17)
[2023-05-09] MEDS: BENZTROPINE MESYLATE 1 MG TABLET PO SCH ×2 (10:16→21:44)
[2023-05-09] MEDS: HALOPERIDOL 5 MG TABLET PO SCH ×2 (10:17→21:44)
[2023-05-09] MEDS: PRENATAL VITAMINS W/ FOLIC ACID TABLET (FP) PO SCH (10:17)
[2023-05-09] MEDS: SERTRALINE HCL 50 MG TABLET (FP) PO SCH (10:17)
[2023-05-09] MEDS: amLODIPine BESYLATE 10 MG TABLET (FP) PO SCH (10:17)
[2023-05-09] MEDS: MELATONIN 5 MG TABLETS PO SCH (21:44)
[2023-05-09] MEDS: THIAMINE HCL 100 MG TABLET (FP) PO SCH (21:44)
[2023-05-09] MEDS: ACETAMINOPHEN 325 MG TABLET (FP) PO PRN (21:45)
[2023-05-10] MEDS: amLODIPine BESYLATE 10 MG TABLET (FP) PO SCH (10:27)
[2023-05-10] MEDS: ACETAMINOPHEN 325 MG TABLET (FP) PO PRN (10:27)
[2023-05-10] MEDS: HALOPERIDOL 5 MG TABLET PO SCH ×2 (10:27→21:30)
[2023-05-10] MEDS: BENZTROPINE MESYLATE 1 MG TABLET PO SCH ×2 (10:27→21:29)
[2023-05-10] MEDS: PRENATAL VITAMINS W/ FOLIC ACID TABLET (FP) PO SCH (10:27)
[2023-05-10] MEDS: SERTRALINE HCL 50 MG TABLET (FP) PO SCH (10:27)
[2023-05-10] MEDS: MELATONIN 5 MG TABLETS PO SCH (21:30)
[2023-05-10] MEDS: THIAMINE HCL 100 MG TABLET (FP) PO SCH (21:30)
[2023-05-11] MEDS: SERTRALINE HCL 50 MG TABLET (FP) PO SCH (10:18)
[2023-05-11] MEDS: amLODIPine BESYLATE 10 MG TABLET (FP) PO SCH (10:18)
[2023-05-11] MEDS: PRENATAL VITAMINS W/ FOLIC ACID TABLET (FP) PO SCH (10:18)
[2023-05-11] MEDS: BENZTROPINE MESYLATE 1 MG TABLET PO SCH ×2 (10:19→21:29)
[2023-05-11] MEDS: HALOPERIDOL 5 MG TABLET PO SCH ×2 (10:20→21:29)
[2023-05-11] MEDS: THIAMINE HCL 100 MG TABLET (FP) PO SCH (21:29)
[2023-05-11] MEDS: MELATONIN 5 MG TABLETS PO SCH (21:29)
[2023-05-12] MEDS: PRENATAL VITAMINS W/ FOLIC ACID TABLET (FP) PO SCH (10:21)
[2023-05-12] MEDS: amLODIPine BESYLATE 10 MG TABLET (FP) PO SCH (10:21)
[2023-05-12] MEDS: BENZTROPINE MESYLATE 1 MG TABLET PO SCH ×2 (10:22→21:29)
[2023-05-12] MEDS: HALOPERIDOL 5 MG TABLET PO SCH ×2 (10:22→21:29)
[2023-05-12] MEDS: SERTRALINE HCL 50 MG TABLET (FP) PO SCH (10:22)
[2023-05-12] MEDS: ACETAMINOPHEN 325 MG TABLET (FP) PO PRN (10:23)
[2023-05-12] MEDS: MELATONIN 5 MG TABLETS PO SCH (21:29)
[2023-05-12] MEDS: THIAMINE HCL 100 MG TABLET (FP) PO SCH (21:29)
[2023-05-13] MEDS: PRENATAL VITAMINS W/ FOLIC ACID TABLET (FP) PO SCH (10:06)
[2023-05-13] MEDS: HALOPERIDOL 5 MG TABLET PO SCH ×2 (10:06→21:18)
[2023-05-13] MEDS: amLODIPine BESYLATE 10 MG TABLET (FP) PO SCH (10:07)
[2023-05-13] MEDS: BENZTROPINE MESYLATE 1 MG TABLET PO SCH ×2 (10:07→21:18)
[2023-05-13] MEDS: SERTRALINE HCL 50 MG TABLET (FP) PO SCH (10:07)
[2023-05-13] MEDS: MELATONIN 5 MG TABLETS PO SCH (21:18)
[2023-05-13] MEDS: THIAMINE HCL 100 MG TABLET (FP) PO SCH (21:18)
[2023-05-14] MEDS: HALOPERIDOL 5 MG TABLET PO SCH ×2 (10:02→21:34)
[2023-05-14] MEDS: SERTRALINE HCL 50 MG TABLET (FP) PO SCH (10:02)
[2023-05-14] MEDS: PRENATAL VITAMINS W/ FOLIC ACID TABLET (FP) PO SCH (10:02)
[2023-05-14] MEDS: BENZTROPINE MESYLATE 1 MG TABLET PO SCH ×2 (10:03→21:34)
[2023-05-14] MEDS: amLODIPine BESYLATE 10 MG TABLET (FP) PO SCH (10:03)
[2023-05-14] MEDS: MELATONIN 5 MG TABLETS PO SCH (21:34)
[2023-05-14] MEDS: THIAMINE HCL 100 MG TABLET (FP) PO SCH (21:34)
[2023-05-15 07:02] VITALS: RESP 20; TEMP 97.6
[2023-05-15] MEDS: SERTRALINE HCL 50 MG TABLET (FP) PO SCH (09:47)
[2023-05-15] MEDS: PRENATAL VITAMINS W/ FOLIC ACID TABLET (FP) PO SCH (09:47)
[2023-05-15] MEDS: BENZTROPINE MESYLATE 1 MG TABLET PO SCH (09:47)
[2023-05-15] MEDS: HALOPERIDOL 5 MG TABLET PO SCH (09:47)
[2023-05-15] MEDS: amLODIPine BESYLATE 10 MG TABLET (FP) PO SCH (09:47)
[2023-05-15 10:06] VITALS: BP 120/66; PULSE 69
== END 2023-05-15 10:04 | disposition home or self-care (01) | DRG 772 ==
LOC: YASAS 14:31 → Y5N 23:13
PROVIDERS: ADMIT Allergy & Immunology; ATTEND Psychiatry & Neurology Pain Medicine
PROC: HZ42ZZZ Group Counseling for Substance Abuse Treatment, Cognitive-Behavioral (ICD-10-PCS; principal; 2023-05-01)
DX: F10.20 Alcohol dependence, uncomplicated (principal); F14.20 Cocaine dependence, uncomplicated; F12.20 Cannabis dependence, uncomplicated; F17.210 Nicotine dependence, cigarettes, uncomplicated; F25.1 Schizoaffective disorder, depressive type; F32.A Depression, unspecified; F19.282 Other psychoactive substance dependence with psychoactive substance-induced sleep disorder; I10 Essential (primary) hypertension; Z62.810 Personal history of physical and sexual abuse in childhood; Z86.19 Personal history of other infectious and parasitic diseases; Z88.6 Allergy status to analgesic agent
CPT/HCPCS: 36415; 71046-TC-FY; 80053; 81003; 85027; 86593; 86780; 87635

== ENCOUNTER 2023-06-15 10:52 | Inpatient (IN) | payer BC ==
[2023-06-15 11:45] VITALS: BMI 29.9
[2023-06-15] MEDS ORDERED: MAGNESIUM HYDROX 2400MG/30ML ORAL SUSPENSION 30 ML CUP PO PRN (12:52)
[2023-06-15] MEDS ORDERED: MAG HYDROX/AL HYDROX/SIMETH 30 ML UNIT-DOSE CUP PO PRN (12:52)
[2023-06-15] MEDS ORDERED: guaiFENesin 600 MG TABLET.ER (FP) PO PRN (12:52)
[2023-06-15] MEDS ORDERED: chlordiazePOXIDE HCL 25 MG CAPSULE PO PRN (12:52)
[2023-06-15] MEDS ORDERED: BENZONATATE 200 MG CAPSULE PO PRN (12:52)
[2023-06-15] MEDS ORDERED: hydrOXYzine PAMOATE 25 MG CAPSULE (FP) PO PRN (12:52)
[2023-06-15] MEDS ORDERED: POLYETHYLENE GLYCOL (HEALTHYLAX) 3350 17 GM PACKET PO PRN (12:52)
[2023-06-15] MEDS ORDERED: DICYCLOMINE HCL 10 MG CAPSULE PO PRN (12:52)
[2023-06-15] MEDS ORDERED: NALOXONE HCL 0.4 MG/ML VIAL IM PRN (12:52)
[2023-06-15] MEDS ORDERED: BISMUTH SUBSALICYLATE 524 MG/30 ML PO PRN (12:52)
[2023-06-15] MEDS ORDERED: IBUPROFEN 600 MG TABLET (FP) PO PRN (12:52)
[2023-06-15] MEDS ORDERED: LOPERAMIDE HCL 2 MG CAPSULE PO PRN (12:52)
[2023-06-15] MEDS ORDERED: ACETAMINOPHEN 325 MG TABLET (FP) PO PRN (12:52)
[2023-06-15] MEDS ORDERED: BENZOCAINE/MENTHOL (CHLORASEPTIC ) LOZENGE MM PRN (12:52)
[2023-06-15] MEDS ORDERED: IBUPROFEN 400 MG TABLET (FP) PO PRN (12:52)
[2023-06-15] MEDS ORDERED: NALOXONE HCL (KLOXXADO) 8 MG SPRAY NS PRN (12:52)
[2023-06-15] MEDS ORDERED: ONDANSETRON *ODT* 4 MG TABLET SL PRN (12:52)
[2023-06-15] MEDS ORDERED: PRENATAL VITAMINS W/ FOLIC ACID TABLET (FP) PO ONE (14:12)
[2023-06-15] MEDS: PRENATAL VITAMINS W/ FOLIC ACID TABLET (FP) PO SCH (14:14)
[2023-06-15] MEDS: amLODIPine BESYLATE 10 MG TABLET (FP) PO SCH (15:56)
[2023-06-15] MEDS: chlordiazePOXIDE HCL 25 MG CAPSULE PO SCH ×2 (17:14→22:16)
[2023-06-15] MEDS ORDERED: cloNIDine HCL 0.1 MG TABLET PO ONE (21:11)
[2023-06-15] MEDS ORDERED: MELATONIN 5 MG TABLETS PO SCH (22:00)
[2023-06-15] MEDS: THIAMINE HCL 100 MG TABLET (FP) PO SCH (22:15)
[2023-06-16] MEDS: chlordiazePOXIDE HCL 25 MG CAPSULE PO SCH ×3 (05:46→17:08)
[2023-06-16] MEDS: METHOCARBAMOL 500 MG TABLET PO PRN (10:17)
[2023-06-16] MEDS: PRENATAL VITAMINS W/ FOLIC ACID TABLET (FP) PO SCH (10:17)
[2023-06-16] MEDS: amLODIPine BESYLATE 10 MG TABLET (FP) PO SCH (10:17)
[2023-06-16] MEDS: NICOTINE 7 MG/24 HOURS TOPICAL PATCH TD SCH (10:21)
[2023-06-16 11:19] LABS: HEMATOCRIT 37.2 % (32.4-45.2); HEMOGLOBIN 12.1 GM/dL (10.7-15.3); MCH 28.4 pg (25.7-33.7); MCHC 32.4 g/dl (32.0-36.0); MEAN CELL VOLUME 87.6 fl (80-96); MEAN PLT VOLUME 8.6 fl (7.5-11.1); PLATELET COUNT 284 10^3/uL (134-434); RBC 4.25 M/mm3 (3.60-5.2); RDW 14.2 % (11.6-15.6); WHITE BLOOD COUNT 3.8 K/mm3 (4.0-10.0)
[2023-06-16 12:47] LABS: POTASSIUM 4.2 mmol/L (3.5-5.1)
[2023-06-16 12:48] LABS: CALCIUM 9.1 mg/dL (8.5-10.1)
[2023-06-16 12:49] LABS: ALBUMIN 3.4 g/dl (3.4-5.0)
[2023-06-16 12:54] LABS: BILIRUBIN,TOTAL 0.3 mg/dL (0.2-1); TOT PROT 6.6 g/dl (6.4-8.2)
[2023-06-16] MEDS: SERTRALINE HCL 50 MG TABLET (FP) PO SCH (13:30)
[2023-06-16] MEDS: BENZTROPINE MESYLATE 1 MG TABLET PO SCH ×2 (13:31→22:33)
[2023-06-16] MEDS: HALOPERIDOL 5 MG TABLET PO SCH ×2 (13:31→22:33)
[2023-06-16] MEDS: THIAMINE HCL 100 MG TABLET (FP) PO SCH (22:33)
[2023-06-17] MEDS ORDERED: chlordiazePOXIDE HCL 25 MG CAPSULE PO SCH (05:00)
[2023-06-17] MEDS: PRENATAL VITAMINS W/ FOLIC ACID TABLET (FP) PO SCH (10:04)
[2023-06-17] MEDS: NICOTINE 7 MG/24 HOURS TOPICAL PATCH TD SCH (10:04)
[2023-06-17] MEDS: HALOPERIDOL 5 MG TABLET PO SCH ×2 (10:05→21:52)
[2023-06-17] MEDS: SERTRALINE HCL 50 MG TABLET (FP) PO SCH (10:05)
[2023-06-17] MEDS: amLODIPine BESYLATE 10 MG TABLET (FP) PO SCH (10:05)
[2023-06-17] MEDS: BENZTROPINE MESYLATE 1 MG TABLET PO SCH ×2 (10:06→21:52)
[2023-06-17] MEDS: METHOCARBAMOL 500 MG TABLET PO PRN (17:00)
[2023-06-17] MEDS: MELATONIN 5 MG TABLETS PO PRN (21:51)
[2023-06-17] MEDS: THIAMINE HCL 100 MG TABLET (FP) PO SCH (21:52)
[2023-06-18] MEDS ORDERED: chlordiazePOXIDE HCL 10 MG CAPSULE PO PRN
[2023-06-18] MEDS ORDERED: chlordiazePOXIDE HCL 10 MG CAPSULE PO SCH (05:00)
[2023-06-18] MEDS: amLODIPine BESYLATE 10 MG TABLET (FP) PO SCH (10:16)
[2023-06-18] MEDS: SERTRALINE HCL 50 MG TABLET (FP) PO SCH (10:16)
[2023-06-18] MEDS: BENZTROPINE MESYLATE 1 MG TABLET PO SCH ×2 (10:17→21:55)
[2023-06-18] MEDS: PRENATAL VITAMINS W/ FOLIC ACID TABLET (FP) PO SCH (10:17)
[2023-06-18] MEDS: HALOPERIDOL 5 MG TABLET PO SCH ×2 (10:17→21:55)
[2023-06-18] MEDS: NICOTINE 7 MG/24 HOURS TOPICAL PATCH TD SCH (10:18)
[2023-06-18] MEDS: THIAMINE HCL 100 MG TABLET (FP) PO SCH (21:55)
[2023-06-18] MEDS: MELATONIN 5 MG TABLETS PO PRN (21:55)
[2023-06-19] MEDS ORDERED: chlordiazePOXIDE HCL 10 MG CAPSULE PO SCH (05:00)
[2023-06-19 06:32] VITALS: RESP 18
[2023-06-19 09:16] VITALS: PULSE 80
[2023-06-19] MEDS: BENZTROPINE MESYLATE 1 MG TABLET PO SCH (10:08)
[2023-06-19] MEDS: SERTRALINE HCL 50 MG TABLET (FP) PO SCH (10:08)
[2023-06-19] MEDS: NICOTINE 7 MG/24 HOURS TOPICAL PATCH TD SCH (10:08)
[2023-06-19] MEDS: amLODIPine BESYLATE 10 MG TABLET (FP) PO SCH (10:08)
[2023-06-19] MEDS: HALOPERIDOL 5 MG TABLET PO SCH (10:08)
[2023-06-19] MEDS: PRENATAL VITAMINS W/ FOLIC ACID TABLET (FP) PO SCH (10:08)
[2023-06-19 12:57] VITALS: BP 124/83; TEMP 97.8
[2023-06-20] MEDS ORDERED: chlordiazePOXIDE HCL 10 MG CAPSULE PO ONE (05:00)
[2023-06-20] MEDS ORDERED: HALOPERIDOL DECANOATE 100 MG/ML IM ONE (06:00)
== END 2023-06-19 13:00 | disposition home or self-care (01) | DRG 774 ==
LOC: YASAS 10:52 → Y6N 13:59
PROVIDERS: ADMIT Allergy & Immunology; ATTEND Surgery
PROC: HZ2ZZZZ Detoxification Services for Substance Abuse Treatment (ICD-10-PCS; principal; 2023-06-15)
DX: F10.230 Alcohol dependence with withdrawal, uncomplicated (principal); F14.20 Cocaine dependence, uncomplicated; F12.20 Cannabis dependence, uncomplicated; F17.210 Nicotine dependence, cigarettes, uncomplicated; F25.1 Schizoaffective disorder, depressive type; I10 Essential (primary) hypertension; R79.89 Other specified abnormal findings of blood chemistry; Z86.19 Personal history of other infectious and parasitic diseases; Z62.810 Personal history of physical and sexual abuse in childhood
CPT/HCPCS: 36415; 80053; 80307; 81025; 82962; 85027; 86593; 86780; 87635; 87811; 93005; 93010

== ENCOUNTER 2023-08-28 12:24 | Inpatient (IN) | payer BC ==
[2023-08-28 12:58] VITALS: BMI 28.2
[2023-08-28] MEDS ORDERED: IBUPROFEN 600 MG TABLET (FP) PO PRN (14:06)
[2023-08-28] MEDS ORDERED: MAGNESIUM HYDROX 2400MG/30ML ORAL SUSPENSION 30 ML CUP PO PRN (14:06)
[2023-08-28] MEDS ORDERED: MAG HYDROX/AL HYDROX/SIMETH 30 ML UNIT-DOSE CUP PO PRN (14:06)
[2023-08-28] MEDS ORDERED: POLYETHYLENE GLYCOL (HEALTHYLAX) 3350 17 GM PACKET PO PRN (14:06)
[2023-08-28] MEDS ORDERED: BENZOCAINE/MENTHOL (CHLORASEPTIC ) LOZENGE MM PRN (14:06)
[2023-08-28] MEDS ORDERED: NALOXONE HCL 0.4 MG/ML VIAL IM PRN (14:06)
[2023-08-28] MEDS ORDERED: guaiFENesin 600 MG TABLET.ER (FP) PO PRN (14:06)
[2023-08-28] MEDS ORDERED: LOPERAMIDE HCL 2 MG CAPSULE PO PRN (14:06)
[2023-08-28] MEDS ORDERED: ONDANSETRON *ODT* 4 MG TABLET SL PRN (14:06)
[2023-08-28] MEDS ORDERED: LORazepam 1 MG TABLET PO PRN (14:06)
[2023-08-28] MEDS ORDERED: ACETAMINOPHEN 325 MG TABLET (FP) PO PRN (14:06)
[2023-08-28] MEDS ORDERED: NALOXONE HCL (KLOXXADO) 8 MG SPRAY NS PRN (14:06)
[2023-08-28] MEDS ORDERED: BENZONATATE 200 MG CAPSULE PO PRN (14:06)
[2023-08-28] MEDS ORDERED: BISMUTH SUBSALICYLATE 524 MG/30 ML PO PRN ×2 (14:06→14:27)
[2023-08-28] MEDS ORDERED: IBUPROFEN 400 MG TABLET (FP) PO PRN (14:06)
[2023-08-28] MEDS ORDERED: METHOCARBAMOL 500 MG TABLET PO PRN (14:06)
[2023-08-28] MEDS ORDERED: hydrOXYzine PAMOATE 25 MG CAPSULE (FP) PO PRN (14:06)
[2023-08-28] MEDS ORDERED: DICYCLOMINE HCL 10 MG CAPSULE PO PRN (14:06)
[2023-08-28] MEDS: LORazepam 2 MG TABLET PO ONE (15:30)
[2023-08-28] MEDS: PRENATAL VITAMINS W/ FOLIC ACID TABLET (FP) PO SCH (15:31)
[2023-08-28] MEDS ORDERED: LORazepam 2 MG TABLET ONE (15:32)
[2023-08-28] MEDS ORDERED: PRENATAL VITAMINS W/ FOLIC ACID TABLET (FP) PO ONE (15:32)
[2023-08-28] MEDS: LORazepam 2 MG TABLET PO SCH (17:21)
[2023-08-28] MEDS: LACTULOSE 20 GM/30 ML UDC (FOR ORAL USE ONLY) PO SCH (20:19)
[2023-08-28] MEDS: THIAMINE HCL 100 MG TABLET (FP) PO SCH (22:52)
[2023-08-28] MEDS: MELATONIN 5 MG TABLETS PO SCH (22:52)
[2023-08-29] MEDS: amLODIPine BESYLATE 10 MG TABLET (FP) PO SCH (10:35)
[2023-08-29] MEDS ORDERED: BENZTROPINE MESYLATE 1 MG TABLET PO SCH ×2 (10:44→11:12)
[2023-08-29 11:31] VITALS: RESP 16
[2023-08-29] MEDS: BENZTROPINE MESYLATE 1 MG TABLET PO SCH (11:42)
[2023-08-29] MEDS: SERTRALINE HCL 50 MG TABLET (FP) PO SCH ×2 (11:48→12:13)
[2023-08-29] MEDS: HALOPERIDOL 5 MG TABLET PO SCH ×3 (11:48→22:56)
[2023-08-29] MEDS: BENZTROPINE MESYLATE 0.5 MG TABLET (FP) PO SCH (11:49)
[2023-08-29 21:24] VITALS: TEMP 98.6
[2023-08-30 02:32] VITALS: BP 132/75; PULSE 83
[2023-08-30] MEDS: LORazepam 1 MG TABLET PO SCH (05:03)
[2023-08-31] MEDS ORDERED: LORazepam 0.5 MG TABLET PO PRN
[2023-08-31] MEDS ORDERED: LORazepam 0.5 MG TABLET PO SCH (05:00)
[2023-09-01] MEDS ORDERED: LORazepam 0.5 MG TABLET PO ONE (05:00)
== END 2023-08-30 11:45 | disposition short-term general hospital (02) | DRG 774 ==
LOC: YASAS 12:24 → Y6N 14:21
PROVIDERS: ADMIT Allergy & Immunology; ATTEND Surgery
PROC: HZ2ZZZZ Detoxification Services for Substance Abuse Treatment (ICD-10-PCS; principal; 2023-08-28)
DX: F10.230 Alcohol dependence with withdrawal, uncomplicated (principal); F14.20 Cocaine dependence, uncomplicated; F19.280 Other psychoactive substance dependence with psychoactive substance-induced anxiety disorder; F19.24 Other psychoactive substance dependence with psychoactive substance-induced mood disorder; F25.1 Schizoaffective disorder, depressive type; I10 Essential (primary) hypertension; R55 Syncope and collapse; W19.XXXA Unspecified fall, initial encounter; Y92.231 Patient bathroom in hospital as the place of occurrence of the external cause; R79.89 Other specified abnormal findings of blood chemistry; Z86.19 Personal history of other infectious and parasitic diseases
CPT/HCPCS: 82962; 87635; 93005; 93010

== ENCOUNTER 2023-08-30 03:57 | Observation (INO) | payer BC ==
[2023-08-30 05:37] LABS: BASO % 0.4 % (0-2.0); EOS % 0.2 % (0-4.5); HEMOGLOBIN 12.1 GM/dL (10.7-15.3); LYMPH % 15.6 % (8-40); MCHC 33.5 g/dl (32.0-36.0); MEAN CELL VOLUME 86.6 fl (80-96); MONO % 7.1 % (3.8-10.2); NEUT % 76.7 % (42.8-82.8); PLATELET COUNT 211 10^3/uL (134-434); RBC 4.16 M/mm3 (3.60-5.2); RDW 13.9 % (11.6-15.6); WHITE BLOOD COUNT 4.3 K/mm3 (4.0-10.0)
[2023-08-30 05:47] LABS: POTASSIUM 3.8 mmol/L (3.5-5.1)
[2023-08-30 05:49] LABS: CALCIUM 8.5 mg/dL (8.5-10.1)
[2023-08-30 05:50] LABS: ALBUMIN 3.1 g/dl (3.4-5.0); BLOOD UREA NITROGEN 9.6 mg/dL (7-18); MAGNESIUM 1.1 mg/dL (1.8-2.4)
[2023-08-30 05:53] LABS: CREATININE 1.1 mg/dL (0.55-1.3)
[2023-08-30 05:54] LABS: BILIRUBIN,TOTAL 0.3 mg/dL (0.2-1)
[2023-08-30 05:55] LABS: TOT PROT 6.6 g/dl (6.4-8.2)
[2023-08-30] MEDS ORDERED: MAGNESIUM OXIDE 400 MG TABLET (FP) ONE (07:24)
[2023-08-30] MEDS ORDERED: MAGNESIUM SULFATE IN WATER 2 GM/50 ML IVPB IVPB ONE (07:24)
[2023-08-30] MEDS: MAGNESIUM SULFATE IN WATER 2 GM/50 ML IVPB IVPB ONE (07:43)
[2023-08-30] MEDS: MAGNESIUM OXIDE 400 MG TABLET (FP) PO ONE (07:43)
[2023-08-30 08:17] LABS: POTASSIUM 3.4 mmol/L (3.5-5.1)
[2023-08-30 08:19] LABS: BLOOD UREA NITROGEN 9.9 mg/dL (7-18); CALCIUM 8.6 mg/dL (8.5-10.1)
[2023-08-30 08:23] LABS: CREATININE 0.9 mg/dL (0.55-1.3)
[2023-08-30] MEDS: LACTATED RINGERS SOLUTION 1000 ML INFUS.BAG IV ONE (09:35)
[2023-08-30] MEDS: LACTATED RINGERS SOLUTION 1,000 ML/1,000 ML INFUS.BAG IV SCH (12:09)
[2023-08-30] MEDS ORDERED: LACTULOSE 20 GM/30 ML UDC (FOR ORAL USE ONLY) ONE (13:22)
[2023-08-30] MEDS: LACTULOSE 20 GM/30 ML UDC (FOR ORAL USE ONLY) PO SCH (15:09)
[2023-08-30 20:29] VITALS: BMI 28.6
[2023-08-30] MEDS: HALOPERIDOL 5 MG TABLET PO SCH (22:02)
[2023-08-31 06:53] VITALS: RESP 18
[2023-08-31 07:14] LABS: BASO % 0.5 % (0-2.0); EOS % 2.4 % (0-4.5); HEMATOCRIT 34.5 % (32.4-45.2); HEMOGLOBIN 11.5 GM/dL (10.7-15.3); LYMPH % 52.5 % (8-40); MCH 28.6 pg (25.7-33.7); MCHC 33.4 g/dl (32.0-36.0); MEAN CELL VOLUME 85.6 fl (80-96); MEAN PLT VOLUME 7.7 fl (7.5-11.1); MONO % 10.5 % (3.8-10.2); NEUT % 34.1 % (42.8-82.8); PLATELET COUNT 205 10^3/uL (134-434); RBC 4.03 M/mm3 (3.60-5.2); RDW 13.7 % (11.6-15.6); WHITE BLOOD COUNT 3.5 K/mm3 (4.0-10.0)
[2023-08-31 07:29] LABS: POTASSIUM 3.8 mmol/L (3.5-5.1)
[2023-08-31 07:31] LABS: CALCIUM 8.4 mg/dL (8.5-10.1)
[2023-08-31 07:34] LABS: ALBUMIN 2.8 g/dl (3.4-5.0); BLOOD UREA NITROGEN 11.5 mg/dL (7-18)
[2023-08-31 07:36] LABS: CREATININE 0.8 mg/dL (0.55-1.3)
[2023-08-31 07:37] LABS: PHOSPHOROUS 2.9 mg/dL (2.5-4.9)
[2023-08-31 07:38] LABS: BILIRUBIN,TOTAL 0.2 mg/dL (0.2-1)
[2023-08-31 07:39] LABS: TOT PROT 5.8 g/dl (6.4-8.2)
[2023-08-31] MEDS: SERTRALINE HCL 50 MG TABLET (FP) PO SCH (11:24)
[2023-08-31] MEDS: PRENATAL VITAMINS W/ FOLIC ACID TABLET (FP) PO SCH (11:24)
[2023-08-31] MEDS ORDERED: MAGNESIUM SULF 50% (8.12 MEQ/2 ML-1 GM VIAL) IVPB ONE (13:45)
[2023-08-31] MEDS ORDERED: CYCLOBENZAPRINE HCL 10 MG TABLET (FP) PO ONE (13:45)
[2023-08-31 16:42] VITALS: BP 143/96; PULSE 65; TEMP 98.1
== END 2023-08-31 16:48 | disposition home or self-care (01) ==
LOC: JER 03:57 → UNDOADMOB 06:57 → JERBED 06:57 → INTOOBSV 10:01 → OBSVTOIN 10:01 → JERBED 14:34 → J4W 18:11
PROVIDERS: ADMIT Internal Medicine; ATTEND Internal Medicine
PROC: 3E0337Z Introduction of Electrolytic and Water Balance Substance into Peripheral Vein, Percutaneous Approach (ICD-10-PCS; principal; 2023-08-30)
PROC: 3E033GC Introduction of Other Therapeutic Substance into Peripheral Vein, Percutaneous Approach (ICD-10-PCS; 2023-08-30)
DX: R55 Syncope and collapse (principal); R77.8 Other specified abnormalities of plasma proteins; F10.139 Alcohol abuse with withdrawal, unspecified; F14.21 Cocaine dependence, in remission; W18.39XA Other fall on same level, initial encounter; Y93.9 Activity, unspecified; F25.9 Schizoaffective disorder, unspecified; Y92.231 Patient bathroom in hospital as the place of occurrence of the external cause; Z87.891 Personal history of nicotine dependence; R01.1 Cardiac murmur, unspecified; I10 Essential (primary) hypertension; Z91.013 Allergy to seafood; Z91.018 Allergy to other foods; Z88.8 Allergy status to other drugs, medicaments and biological substances
CPT/HCPCS: 0241U-QW; 36415; 70450-TC; 71045-TC-FY; 72125-TC; 73030-TC-LT-FY; 80048; 80053; 80061; 83036; 83605; 83735; 84100; 84484; 85025; 85730; 93005; 93010; 93306-TC; 93880-TC; 96361; 96365; 99285-25; G0378

== ENCOUNTER 2023-09-08 11:39 | Inpatient (IN) | payer BC ==
[2023-09-08] MEDS ORDERED: POLYETHYLENE GLYCOL (HEALTHYLAX) 3350 17 GM PACKET PO PRN (13:30)
[2023-09-08] MEDS ORDERED: BENZONATATE 200 MG CAPSULE PO PRN (13:30)
[2023-09-08] MEDS ORDERED: NALOXONE HCL 0.4 MG/ML VIAL IM PRN (13:30)
[2023-09-08] MEDS ORDERED: BENZOCAINE/MENTHOL (CHLORASEPTIC ) LOZENGE MM PRN (13:30)
[2023-09-08] MEDS ORDERED: NALOXONE HCL (KLOXXADO) 8 MG SPRAY NS PRN (13:30)
[2023-09-08] MEDS ORDERED: guaiFENesin 600 MG TABLET.ER (FP) PO PRN (13:30)
[2023-09-08] MEDS ORDERED: MAGNESIUM HYDROX 2400MG/30ML ORAL SUSPENSION 30 ML CUP PO PRN (13:30)
[2023-09-08] MEDS ORDERED: DICYCLOMINE HCL 10 MG CAPSULE PO PRN (13:30)
[2023-09-08] MEDS ORDERED: LOPERAMIDE HCL 2 MG CAPSULE PO PRN (13:30)
[2023-09-08] MEDS ORDERED: ONDANSETRON *ODT* 4 MG TABLET SL PRN (13:30)
[2023-09-08] MEDS ORDERED: MAG HYDROX/AL HYDROX/SIMETH 30 ML UNIT-DOSE CUP PO PRN (13:30)
[2023-09-08] MEDS ORDERED: ACETAMINOPHEN 325 MG TABLET (FP) PO PRN (13:30)
[2023-09-08] MEDS ORDERED: BISMUTH SUBSALICYLATE 524 MG/30 ML PO PRN (13:30)
[2023-09-08] MEDS: METHOCARBAMOL 500 MG TABLET PO PRN (22:27)
[2023-09-08] MEDS: MELATONIN 5 MG TABLETS PO SCH (22:27)
[2023-09-08] MEDS: hydrOXYzine PAMOATE 25 MG CAPSULE (FP) PO PRN (22:27)
[2023-09-08] MEDS: THIAMINE HCL 100 MG TABLET (FP) PO SCH (22:27)
[2023-09-09 10:33] LABS: HEMOGLOBIN 12.6 GM/dL (10.7-15.3); MEAN CELL VOLUME 85.4 fl (80-96); MEAN PLT VOLUME 8.2 fl (7.5-11.1); PLATELET COUNT 264 10^3/uL (134-434); RBC 4.34 M/mm3 (3.60-5.2); RDW 13.9 % (11.6-15.6); WHITE BLOOD COUNT 4.3 K/mm3 (4.0-10.0)
[2023-09-09] MEDS ORDERED: chlordiazePOXIDE HCL 25 MG CAPSULE PO PRN (10:50)
[2023-09-09 10:55] LABS: POTASSIUM 3.9 mmol/L (3.5-5.1)
[2023-09-09] MEDS: PRENATAL VITAMINS W/ FOLIC ACID TABLET (FP) PO SCH (10:57)
[2023-09-09 10:58] LABS: BLOOD UREA NITROGEN 13.6 mg/dL (7-18); CALCIUM 9.2 mg/dL (8.5-10.1)
[2023-09-09 11:01] LABS: CREATININE 1.2 mg/dL (0.55-1.3)
[2023-09-09 11:03] LABS: BILIRUBIN,TOTAL 0.2 mg/dL (0.2-1); TOT PROT 7.2 g/dl (6.4-8.2)
[2023-09-09 11:08] LABS: ALBUMIN 3.7 g/dl (3.4-5.0)
[2023-09-09] MEDS: chlordiazePOXIDE HCL 25 MG CAPSULE PO SCH (18:00)
[2023-09-09] MEDS ORDERED: BENZTROPINE MESYLATE 1 MG TABLET PO SCH (22:00)
[2023-09-09] MEDS ORDERED: HALOPERIDOL 5 MG TABLET PO SCH (22:00)
[2023-09-09] MEDS: HALOPERIDOL 5 MG TABLET PO SCH (22:59)
[2023-09-09] MEDS: BENZTROPINE MESYLATE 1 MG TABLET PO SCH (22:59)
[2023-09-10] MEDS: chlordiazePOXIDE HCL 25 MG CAPSULE PO SCH (06:00)
[2023-09-10] MEDS: amLODIPine BESYLATE 5 MG TABLET (FP) PO SCH (09:33)
[2023-09-10] MEDS: SERTRALINE HCL 50 MG TABLET (FP) PO SCH (09:33)
[2023-09-10 09:45] VITALS: RESP 18
[2023-09-10 13:16] VITALS: BP 138/80; PULSE 84; TEMP 97.3
[2023-09-11] MEDS ORDERED: chlordiazePOXIDE HCL 10 MG CAPSULE PO PRN
[2023-09-11] MEDS ORDERED: chlordiazePOXIDE HCL 10 MG CAPSULE PO SCH (05:00)
[2023-09-12] MEDS ORDERED: chlordiazePOXIDE HCL 10 MG CAPSULE PO SCH (05:00)
[2023-09-13] MEDS ORDERED: chlordiazePOXIDE HCL 10 MG CAPSULE PO ONE (05:00)
== END 2023-09-10 08:50 | disposition left against medical advice (07) | DRG 770 ==
LOC: YASAS 11:39 → Y6N 14:04
PROVIDERS: ADMIT Allergy & Immunology; ATTEND Surgery
PROC: HZ2ZZZZ Detoxification Services for Substance Abuse Treatment (ICD-10-PCS; principal; 2023-09-08)
DX: F10.230 Alcohol dependence with withdrawal, uncomplicated (principal); F14.20 Cocaine dependence, uncomplicated; F15.10 Other stimulant abuse, uncomplicated; F12.20 Cannabis dependence, uncomplicated; F25.1 Schizoaffective disorder, depressive type; I10 Essential (primary) hypertension; I42.6 Alcoholic cardiomyopathy; Z86.19 Personal history of other infectious and parasitic diseases; Z62.810 Personal history of physical and sexual abuse in childhood; Z63.8 Other specified problems related to primary support group; Z87.891 Personal history of nicotine dependence
CPT/HCPCS: 36415; 80053; 80305; 80307; 85027; 86593; 86780; 87635; 87811

== ENCOUNTER 2023-10-05 14:18 | Inpatient (IN) | payer BC ==
[2023-10-05 15:19] VITALS: BMI 28.2
[2023-10-05] MEDS ORDERED: MAGNESIUM HYDROX 2400MG/30ML ORAL SUSPENSION 30 ML CUP PO PRN (21:12)
[2023-10-05] MEDS ORDERED: LOPERAMIDE HCL 2 MG CAPSULE PO PRN (21:12)
[2023-10-05] MEDS ORDERED: POLYETHYLENE GLYCOL (HEALTHYLAX) 3350 17 GM PACKET PO PRN (21:12)
[2023-10-05] MEDS ORDERED: MAG HYDROX/AL HYDROX/SIMETH 30 ML UNIT-DOSE CUP PO PRN (21:12)
[2023-10-05] MEDS ORDERED: ACETAMINOPHEN 325 MG TABLET (FP) PO PRN (21:12)
[2023-10-05] MEDS ORDERED: NALOXONE HCL (KLOXXADO) 8 MG SPRAY NS PRN (21:12)
[2023-10-05] MEDS ORDERED: guaiFENesin 600 MG TABLET.ER (FP) PO PRN (21:12)
[2023-10-05] MEDS ORDERED: BENZONATATE 200 MG CAPSULE PO PRN (21:12)
[2023-10-05] MEDS ORDERED: hydrOXYzine PAMOATE 25 MG CAPSULE (FP) PO PRN (21:12)
[2023-10-05] MEDS ORDERED: NALOXONE HCL 0.4 MG/ML VIAL IM PRN (21:12)
[2023-10-05] MEDS ORDERED: BENZOCAINE/MENTHOL (CHLORASEPTIC ) LOZENGE MM PRN (21:12)
[2023-10-05] MEDS: MELATONIN 5 MG TABLETS PO SCH (22:56)
[2023-10-05] MEDS: THIAMINE HCL 100 MG TABLET (FP) PO SCH (22:56)
[2023-10-06] MEDS: PRENATAL VITAMINS W/ FOLIC ACID TABLET (FP) PO SCH (09:50)
[2023-10-06] MEDS: amLODIPine BESYLATE 5 MG TABLET (FP) PO SCH (09:50)
[2023-10-06 12:52] LABS: HEMATOCRIT 37.1 % (32.4-45.2); HEMOGLOBIN 12.3 GM/dL (10.7-15.3); MCHC 33.1 g/dl (32.0-36.0); MEAN CELL VOLUME 87.7 fl (80-96); MEAN PLT VOLUME 8.2 fl (7.5-11.1); PLATELET COUNT 234 10^3/uL (134-434); RBC 4.23 M/mm3 (3.60-5.2); RDW 14.7 % (11.6-15.6); WHITE BLOOD COUNT 3.4 K/mm3 (4.0-10.0)
[2023-10-06 13:26] LABS: CHLORIDE 105 mmol/L (98-107); POTASSIUM 4.7 mmol/L (3.5-5.1); SODIUM 142 mmol/L (136-145)
[2023-10-06 13:58] LABS: ALBUMIN 3.2 g/dl (3.4-5.0); BLOOD UREA NITROGEN 19.3 mg/dL (7-18); CALCIUM 8.8 mg/dL (8.5-10.1); GLUCOSE,RANDOM 97 mg/dL (74-106)
[2023-10-06 13:59] LABS: ANION GAP 5 mmol/L (4-13); CO2 32 mmol/L (21-32)
[2023-10-06 14:01] LABS: SGOT/AST 17 U/L (15-37)
[2023-10-06 14:02] LABS: CREATININE 1.1 mg/dL (0.55-1.3); SGPT/ALT 17 U/L (13-61)
[2023-10-06 14:03] LABS: ALK PHOS 71 U/L (45-117); BILIRUBIN,TOTAL 0.2 mg/dL (0.2-1)
[2023-10-06 15:05] LABS: EPI CELLS >36 /uL (0-25.1); HYALINE CASTS 1 /uL (0-3.1); PH,URINE 5.5 (5.0-8.0); URINE APPEARANCE CLOUDY; URINE BACTERIA 1352 /uL (0-1359); URINE BILIRUBIN NEGATIVE (NEGATIVE); URINE COLOR YELLOW; URINE GLUCOSE (UA) NEGATIVE (NEGATIVE); URINE KETONE NEGATIVE (NEGATIVE); URINE LEUK ESTERASE 1+ (NEGATIVE); URINE NITRITE NEGATIVE (NEGATIVE); URINE PROTEIN NEGATIVE (NEGATIVE); URINE RBC 15 /uL (0-23.9); URINE UROBILINOGEN 0.2 mg/dL (0.2-1.0); URINE WBC 85 /uL (0-25.8)
[2023-10-06] MEDS: HALOPERIDOL 5 MG TABLET PO SCH (21:09)
[2023-10-06] MEDS: BENZTROPINE MESYLATE 1 MG TABLET PO SCH (21:09)
[2023-10-07] MEDS: SERTRALINE HCL 50 MG TABLET (FP) PO SCH (10:16)
[2023-10-09 07:59] VITALS: RESP 18
[2023-10-12 07:31] VITALS: TEMP 97.5
[2023-10-12 08:59] VITALS: BP 140/78; PULSE 73
== END 2023-10-12 12:30 | disposition home or self-care (01) | DRG 772 ==
LOC: YASAS 14:18 → Y5N 22:34
PROVIDERS: ADMIT Allergy & Immunology; ATTEND Psychiatry & Neurology Pain Medicine
PROC: HZ42ZZZ Group Counseling for Substance Abuse Treatment, Cognitive-Behavioral (ICD-10-PCS; principal; 2023-10-05)
DX: F10.20 Alcohol dependence, uncomplicated (principal); F14.20 Cocaine dependence, uncomplicated; F12.20 Cannabis dependence, uncomplicated; F25.1 Schizoaffective disorder, depressive type; I10 Essential (primary) hypertension; M17.12 Unilateral primary osteoarthritis, left knee; M54.50 Low back pain, unspecified; G89.29 Other chronic pain; Z62.810 Personal history of physical and sexual abuse in childhood; Z63.8 Other specified problems related to primary support group; Z86.19 Personal history of other infectious and parasitic diseases; Z87.891 Personal history of nicotine dependence; Z88.6 Allergy status to analgesic agent
CPT/HCPCS: 36415; 80053; 80305; 80307; 81003; 85027; 86593; 86780; 87635; 93005; 93010

== ENCOUNTER 2023-10-27 13:15 | Inpatient (IN) | payer BC ==
[2023-10-27 14:41] VITALS: BMI 27.4
[2023-10-27] MEDS ORDERED: NALOXONE HCL (KLOXXADO) 8 MG SPRAY NS PRN (17:06)
[2023-10-27] MEDS ORDERED: hydrOXYzine PAMOATE 25 MG CAPSULE (FP) PO PRN (17:06)
[2023-10-27] MEDS ORDERED: LOPERAMIDE HCL 2 MG CAPSULE PO PRN (17:06)
[2023-10-27] MEDS ORDERED: BENZOCAINE/MENTHOL (CHLORASEPTIC ) LOZENGE MM PRN (17:06)
[2023-10-27] MEDS ORDERED: POLYETHYLENE GLYCOL (HEALTHYLAX) 3350 17 GM PACKET PO PRN (17:06)
[2023-10-27] MEDS ORDERED: NALOXONE HCL 0.4 MG/ML VIAL IM PRN (17:06)
[2023-10-27] MEDS ORDERED: IBUPROFEN 400 MG TABLET (FP) PO PRN (17:06)
[2023-10-27] MEDS ORDERED: ACETAMINOPHEN 325 MG TABLET (FP) PO PRN (17:06)
[2023-10-27] MEDS ORDERED: guaiFENesin 600 MG TABLET.ER (FP) PO PRN (17:06)
[2023-10-27] MEDS ORDERED: MAGNESIUM HYDROX 2400MG/30ML ORAL SUSPENSION 30 ML CUP PO PRN (17:06)
[2023-10-27] MEDS ORDERED: IBUPROFEN 600 MG TABLET (FP) PO PRN (17:06)
[2023-10-27] MEDS ORDERED: DICYCLOMINE HCL 10 MG CAPSULE PO PRN (17:06)
[2023-10-27] MEDS ORDERED: ONDANSETRON *ODT* 4 MG TABLET SL PRN (17:06)
[2023-10-27] MEDS ORDERED: BENZONATATE 200 MG CAPSULE PO PRN (17:06)
[2023-10-27] MEDS ORDERED: BISMUTH SUBSALICYLATE 524 MG/30 ML PO PRN (17:06)
[2023-10-27] MEDS ORDERED: MAG HYDROX/AL HYDROX/SIMETH 30 ML UNIT-DOSE CUP PO PRN (17:06)
[2023-10-27] MEDS: THIAMINE HCL 100 MG TABLET (FP) PO SCH (22:36)
[2023-10-27] MEDS: METHOCARBAMOL 500 MG TABLET PO PRN (22:36)
[2023-10-27] MEDS: MELATONIN 5 MG TABLETS PO SCH (22:36)
[2023-10-28] MEDS: PRENATAL VITAMINS W/ FOLIC ACID TABLET (FP) PO SCH (10:39)
[2023-10-28 11:56] LABS: CHLORIDE 107 mmol/L (98-107); POTASSIUM 4.4 mmol/L (3.5-5.1); SODIUM 141 mmol/L (136-145)
[2023-10-28 11:58] LABS: HEMATOCRIT 35.6 % (32.4-45.2); HEMOGLOBIN 12.2 GM/dL (10.7-15.3); MCH 29.5 pg (25.7-33.7); MCHC 34.2 g/dl (32.0-36.0); MEAN CELL VOLUME 86.1 fl (80-96); MEAN PLT VOLUME 8.3 fl (7.5-11.1); PLATELET COUNT 207 10^3/uL (134-434); RBC 4.13 M/mm3 (3.60-5.2); RDW 14.3 % (11.6-15.6); WHITE BLOOD COUNT 2.9 K/mm3 (4.0-10.0)
[2023-10-28 12:02] LABS: ANION GAP 3 mmol/L (4-13); BLOOD UREA NITROGEN 18.4 mg/dL (7-18); CO2 30 mmol/L (21-32); CREATININE 0.9 mg/dL (0.55-1.3); GLUCOSE,RANDOM 80 mg/dL (74-106); SGPT/ALT 15 U/L (13-61)
[2023-10-28 12:03] LABS: BILIRUBIN,TOTAL 0.2 mg/dL (0.2-1); TOT PROT 5.9 g/dl (6.4-8.2)
[2023-10-28 12:04] LABS: ALK PHOS 66 U/L (45-117); CALCIUM 8.9 mg/dL (8.5-10.1)
[2023-10-28 12:05] LABS: SGOT/AST 21 U/L (15-37)
[2023-10-29 07:22] VITALS: RESP 16
[2023-10-29 11:18] VITALS: BP 136/73; PULSE 73; TEMP 97.6
[2023-10-29] MEDS: amLODIPine BESYLATE 5 MG TABLET (FP) PO SCH (11:23)
== END 2023-10-29 10:05 | disposition home or self-care (01) | DRG 774 ==
LOC: YASAS 13:15 → Y6N 17:54
PROVIDERS: ADMIT Allergy & Immunology; ATTEND Surgery
PROC: HZ2ZZZZ Detoxification Services for Substance Abuse Treatment (ICD-10-PCS; principal; 2023-10-27)
DX: F10.20 Alcohol dependence, uncomplicated (principal); F14.20 Cocaine dependence, uncomplicated; F12.20 Cannabis dependence, uncomplicated; F25.1 Schizoaffective disorder, depressive type; D72.810 Lymphocytopenia; I10 Essential (primary) hypertension; M17.12 Unilateral primary osteoarthritis, left knee; M54.50 Low back pain, unspecified; G89.29 Other chronic pain; Z87.891 Personal history of nicotine dependence; Z86.19 Personal history of other infectious and parasitic diseases; Z88.6 Allergy status to analgesic agent
CPT/HCPCS: 36415; 80053; 80307; 85027; 86593; 86780; 93005; 93010

== ENCOUNTER 2023-12-30 11:43 | Inpatient (IN) | payer BC ==
[2023-12-30 12:27] VITALS: BMI 25.2
[2023-12-30] MEDS ORDERED: POLYETHYLENE GLYCOL (HEALTHYLAX) 3350 17 GM PACKET PO PRN (13:06)
[2023-12-30] MEDS ORDERED: MAGNESIUM HYDROX 2400MG/30ML ORAL SUSPENSION 30 ML CUP PO PRN (13:06)
[2023-12-30] MEDS ORDERED: P-EPHED 60MG/TRIPROLIDI 2.5MG TABLET PO PRN (13:06)
[2023-12-30] MEDS ORDERED: BENZONATATE 200 MG CAPSULE PO PRN (13:06)
[2023-12-30] MEDS ORDERED: guaiFENesin 600 MG TABLET.ER (FP) PO PRN (13:06)
[2023-12-30] MEDS ORDERED: BENZOCAINE/MENTHOL (CHLORASEPTIC ) LOZENGE MM PRN (13:06)
[2023-12-30] MEDS ORDERED: ACETAMINOPHEN 325 MG TABLET (FP) PO PRN (13:06)
[2023-12-30] MEDS ORDERED: DOCUSATE SODIUM 100 MG CAPSULE (FP) PO PRN (13:06)
[2023-12-30] MEDS ORDERED: LOPERAMIDE HCL 2 MG CAPSULE PO PRN (13:06)
[2023-12-30] MEDS: cloNIDine HCL 0.1 MG TABLET PO PRN (15:56)
[2023-12-30] MEDS ORDERED: HALOPERIDOL 5 MG TABLET PO PRN (18:38)
[2023-12-30] MEDS: THIAMINE 100 MG TABLET PO SCH (22:24)
[2023-12-30] MEDS: HALOPERIDOL 5 MG TABLET PO SCH (22:24)
[2023-12-30] MEDS: BENZTROPINE MESYLATE 1 MG TABLET PO SCH (22:24)
[2023-12-30] MEDS: MELATONIN 5 MG TABLETS PO SCH (22:25)
[2023-12-31] MEDS: amLODIPine BESYLATE 5 MG TABLET (FP) PO SCH (09:49)
[2023-12-31] MEDS: SERTRALINE HCL 50 MG TABLET (FP) PO SCH (09:50)
[2023-12-31] MEDS: PRENATAL VITAMINS W/ FOLIC ACID TABLET (FP) PO SCH (09:51)
[2023-12-31 12:59] LABS: PH,URINE 6.5 (5.0-8.0); URINE APPEARANCE CLOUDY; URINE BILIRUBIN NEGATIVE (NEGATIVE); URINE COLOR YELLOW; URINE GLUCOSE (UA) NEGATIVE (NEGATIVE); URINE KETONE NEGATIVE (NEGATIVE); URINE LEUK ESTERASE NEGATIVE (NEGATIVE); URINE NITRITE NEGATIVE (NEGATIVE); URINE PROTEIN NEGATIVE (NEGATIVE)
[2023-12-31] MEDS: amLODIPine BESYLATE 10 MG TABLET (FP) PO ONE (14:03)
[2024-01-01] MEDS: SERTRALINE HCL 50 MG TABLET (FP) PO SCH (09:28)
[2024-01-01] MEDS: amLODIPine BESYLATE 10 MG TABLET (FP) PO SCH (09:30)
[2024-01-01] MEDS: PRENATAL VITAMINS W/ FOLIC ACID TABLET (FP) PO SCH (09:30)
[2024-01-01] MEDS ORDERED: amLODIPine BESYLATE 10 MG TABLET (FP) PO SCH (10:00)
[2024-01-04 11:47] LABS: BASO % 0.6 % (0-2.0); EOS % 3.7 % (0-4.5); HEMATOCRIT 34.8 % (32.4-45.2); HEMOGLOBIN 11.8 GM/dL (10.7-15.3); LYMPH % 44.9 % (8-40); MCH 29.3 pg (25.7-33.7); MCHC 33.9 g/dl (32.0-36.0); MEAN CELL VOLUME 86.4 fl (80-96); MEAN PLT VOLUME 8.3 fl (7.5-11.1); MONO % 11.9 % (3.8-10.2); NEUT % 38.9 % (42.8-82.8); PLATELET COUNT 208 10^3/uL (134-434); RBC 4.03 M/mm3 (3.60-5.2); RDW 13.3 % (11.6-15.6); WHITE BLOOD COUNT 3.1 K/mm3 (4.0-10.0)
[2024-01-04 11:54] LABS: POTASSIUM 4.3 mmol/L (3.5-5.1)
[2024-01-04 11:55] LABS: PROTHROMBIN TIME (PATIENT) 11.3 SEC (9.7-13.0)
[2024-01-04 12:09] LABS: CALCIUM 8.5 mg/dL (8.5-10.1); MAGNESIUM 1.8 mg/dL (1.8-2.4)
[2024-01-04 12:10] LABS: BLOOD UREA NITROGEN 20.8 mg/dL (7-18)
[2024-01-04 12:13] LABS: TOT PROT 5.7 g/dl (6.4-8.2)
[2024-01-04 12:17] LABS: BILIRUBIN,TOTAL 0.2 mg/dL (0.2-1)
[2024-01-06] MEDS: MAG HYDROX/AL HYDROX/SIMETH 30 ML UNIT-DOSE CUP PO PRN (11:01)
[2024-01-06] MEDS: ACAMPROSATE CALCIUM 333 MG TABLET.DR PO SCH (14:50)
[2024-01-08 06:59] VITALS: BP 123/75; PULSE 65; RESP 17; TEMP 97.3
== END 2024-01-08 12:26 | disposition home or self-care (01) | DRG 772 ==
LOC: YASAS 11:43 → Y3NR 14:40 → Y5N 01-02 13:19
PROVIDERS: ADMIT Allergy & Immunology; ATTEND Psychiatry & Neurology Pain Medicine
PROC: HZ42ZZZ Group Counseling for Substance Abuse Treatment, Cognitive-Behavioral (ICD-10-PCS; principal; 2023-12-30)
DX: F10.20 Alcohol dependence, uncomplicated (principal); F14.20 Cocaine dependence, uncomplicated; F25.1 Schizoaffective disorder, depressive type; F19.282 Other psychoactive substance dependence with psychoactive substance-induced sleep disorder; I10 Essential (primary) hypertension; Z62.810 Personal history of physical and sexual abuse in childhood; Z63.8 Other specified problems related to primary support group; Z86.19 Personal history of other infectious and parasitic diseases
CPT/HCPCS: 36415; 80053; 80305; 80307; 81003; 82140; 82652; 83735; 85025; 85610; 87811; 93005; 93010

== ENCOUNTER 2024-02-26 10:26 | Inpatient (IN) | payer BC ==
[2024-02-26 10:57] VITALS: BMI 25.8
[2024-02-26] MEDS ORDERED: BISMUTH SUBSALICYLATE 524 MG/30 ML PO PRN (14:50)
[2024-02-26] MEDS ORDERED: MAGNESIUM HYDROX 2400MG/30ML ORAL SUSPENSION 30 ML CUP PO PRN (14:50)
[2024-02-26] MEDS ORDERED: BENZONATATE 200 MG CAPSULE PO PRN (14:50)
[2024-02-26] MEDS ORDERED: MAG HYDROX/AL HYDROX/SIMETH 30 ML UNIT-DOSE CUP PO PRN (14:50)
[2024-02-26] MEDS ORDERED: NALOXONE HCL 0.4 MG/ML VIAL IM PRN (14:50)
[2024-02-26] MEDS ORDERED: LOPERAMIDE HCL 2 MG CAPSULE PO PRN (14:50)
[2024-02-26] MEDS ORDERED: BENZOCAINE/MENTHOL (CHLORASEPTIC ) LOZENGE MM PRN (14:50)
[2024-02-26] MEDS ORDERED: NALOXONE (NARCAN) HCL 4 MG/0.1 ML SPRAY NS PRN (14:50)
[2024-02-26] MEDS ORDERED: guaiFENesin 600 MG TABLET.ER (FP) PO PRN (14:50)
[2024-02-26] MEDS ORDERED: POLYETHYLENE GLYCOL (HEALTHYLAX) 3350 17 GM PACKET PO PRN (14:50)
[2024-02-26] MEDS: cloNIDine HCL 0.1 MG TABLET PO ONE (16:06)
[2024-02-26] MEDS: MELATONIN 5 MG TABLETS PO SCH (22:14)
[2024-02-26] MEDS: THIAMINE 100 MG TABLET PO SCH (22:14)
[2024-02-26] MEDS: METHOCARBAMOL 500 MG TABLET PO PRN (22:14)
[2024-02-26] MEDS: hydrOXYzine PAMOATE 25 MG CAPSULE (FP) PO PRN (22:15)
[2024-02-26] MEDS: ONDANSETRON *ODT* 4 MG TABLET SL PRN (22:17)
[2024-02-26] MEDS: chlordiazePOXIDE HCL 25 MG CAPSULE PO SCH (23:01)
[2024-02-27] MEDS: PRENATAL VITAMINS W/ FOLIC ACID TABLET (FP) PO SCH (10:19)
[2024-02-27 10:37] LABS: CHLORIDE 108 mmol/L (98-107); HEMATOCRIT 36.6 % (32.4-45.2); HEMOGLOBIN 12.3 GM/dL (10.7-15.3); MCH 29.1 pg (25.7-33.7); MCHC 33.6 g/dl (32.0-36.0); MEAN CELL VOLUME 86.5 fl (80-96); PLATELET COUNT 213 10^3/uL (134-434); POTASSIUM 4.4 mmol/L (3.5-5.1); RBC 4.23 M/mm3 (3.60-5.2); RDW 14.2 % (11.6-15.6); SODIUM 143 mmol/L (136-145); WHITE BLOOD COUNT 2.4 K/mm3 (4.0-10.0)
[2024-02-27 10:46] LABS: ANION GAP 5 mmol/L (4-13); BLOOD UREA NITROGEN 19.5 mg/dL (7-18); CO2 29 mmol/L (21-32); GLUCOSE,RANDOM 74 mg/dL (74-106)
[2024-02-27 10:49] LABS: BILIRUBIN,TOTAL 0.2 mg/dL (0.2-1); SGOT/AST 15 U/L (15-37); SGPT/ALT 15 U/L (13-61)
[2024-02-27 10:51] LABS: ALK PHOS 67 U/L (45-117)
[2024-02-27] MEDS: BENZTROPINE MESYLATE 1 MG TABLET PO SCH (22:37)
[2024-02-27] MEDS: HALOPERIDOL 5 MG TABLET PO SCH (22:37)
[2024-02-27] MEDS: chlordiazePOXIDE HCL 25 MG CAPSULE PO PRN (22:37)
[2024-02-28] MEDS: chlordiazePOXIDE HCL 25 MG CAPSULE PO SCH (05:12)
[2024-02-28] MEDS: HALOPERIDOL 5 MG TABLET PO SCH (10:53)
[2024-02-28] MEDS: amLODIPine BESYLATE 5 MG TABLET (FP) PO SCH (10:53)
[2024-02-28] MEDS: SERTRALINE HCL 50 MG TABLET (FP) PO SCH (11:37)
[2024-02-28] MEDS: ACAMPROSATE CALCIUM 333 MG TABLET.DR PO SCH (14:05)
[2024-02-29] MEDS ORDERED: chlordiazePOXIDE HCL 10 MG CAPSULE PO PRN
[2024-02-29] MEDS: chlordiazePOXIDE HCL 10 MG CAPSULE PO SCH (05:35)
[2024-03-01] MEDS: chlordiazePOXIDE HCL 10 MG CAPSULE PO SCH (06:12)
[2024-03-02] MEDS: chlordiazePOXIDE HCL 10 MG CAPSULE PO ONE (05:56)
[2024-03-02 13:00] VITALS: BP 142/70; PULSE 71; RESP 16; TEMP 96.5
== END 2024-03-02 13:55 | disposition home or self-care (01) | DRG 774 ==
LOC: YASAS 10:26 → Y6N 15:21
PROVIDERS: ADMIT Allergy & Immunology; ATTEND Surgery
PROC: HZ2ZZZZ Detoxification Services for Substance Abuse Treatment (ICD-10-PCS; principal; 2024-02-26)
DX: F10.230 Alcohol dependence with withdrawal, uncomplicated (principal); F14.20 Cocaine dependence, uncomplicated; F12.20 Cannabis dependence, uncomplicated; F25.1 Schizoaffective disorder, depressive type; I10 Essential (primary) hypertension; D72.819 Decreased white blood cell count, unspecified; Z88.6 Allergy status to analgesic agent; Z91.013 Allergy to seafood; Z86.11 Personal history of tuberculosis; Z86.19 Personal history of other infectious and parasitic diseases; Z56.0 Unemployment, unspecified
CPT/HCPCS: 36415; 80053; 80305; 80307; 85027; 86593; 86780; 87811; 93005; 93010; Q0162

== ENCOUNTER 2024-05-09 10:37 | Inpatient (IN) | payer BC ==
[2024-05-09 11:45] VITALS: BMI 27.4
[2024-05-09] MEDS ORDERED: POLYETHYLENE GLYCOL (HEALTHYLAX) 3350 17 GM PACKET PO PRN (13:11)
[2024-05-09] MEDS ORDERED: ACETAMINOPHEN 325 MG TABLET (FP) PO PRN (13:11)
[2024-05-09] MEDS ORDERED: MAG HYDROX/AL HYDROX/SIMETH 30 ML UNIT-DOSE CUP PO PRN (13:11)
[2024-05-09] MEDS ORDERED: BENZONATATE 200 MG CAPSULE PO PRN (13:11)
[2024-05-09] MEDS ORDERED: IBUPROFEN 400 MG TABLET (FP) PO PRN (13:11)
[2024-05-09] MEDS ORDERED: hydrOXYzine PAMOATE 25 MG CAPSULE (FP) PO PRN (13:11)
[2024-05-09] MEDS ORDERED: BISMUTH SUBSALICYLATE 524 MG/30 ML PO PRN (13:11)
[2024-05-09] MEDS ORDERED: IBUPROFEN 600 MG TABLET (FP) PO PRN (13:11)
[2024-05-09] MEDS ORDERED: METHOCARBAMOL 500 MG TABLET PO PRN (13:11)
[2024-05-09] MEDS ORDERED: NALOXONE (NARCAN) HCL 4 MG/0.1 ML SPRAY NS PRN (13:11)
[2024-05-09] MEDS ORDERED: DICYCLOMINE HCL 10 MG CAPSULE PO PRN (13:11)
[2024-05-09] MEDS ORDERED: BENZOCAINE/MENTHOL (CHLORASEPTIC ) LOZENGE MM PRN (13:11)
[2024-05-09] MEDS ORDERED: MAGNESIUM HYDROX 2400MG/30ML ORAL SUSPENSION 30 ML CUP PO PRN (13:11)
[2024-05-09] MEDS ORDERED: ONDANSETRON *ODT* 4 MG TABLET SL PRN (13:11)
[2024-05-09] MEDS ORDERED: guaiFENesin 600 MG TABLET.ER (FP) PO PRN (13:11)
[2024-05-09] MEDS ORDERED: LOPERAMIDE HCL 2 MG CAPSULE PO PRN (13:11)
[2024-05-09] MEDS: PRENATAL VITAMINS W/ FOLIC ACID TABLET (FP) PO SCH (13:45)
[2024-05-09] MEDS: chlordiazePOXIDE HCL 25 MG CAPSULE PO SCH (18:01)
[2024-05-09] MEDS: THIAMINE 100 MG TABLET PO SCH (23:06)
[2024-05-09] MEDS: ACAMPROSATE CALCIUM 333 MG TABLET.DR PO SCH (23:06)
[2024-05-09] MEDS: MELATONIN 5 MG TABLETS PO SCH (23:07)
[2024-05-10 10:31] LABS: HEMATOCRIT 32.5 % (32.4-45.2); HEMOGLOBIN 10.8 GM/dL (10.7-15.3); MCHC 33.1 g/dl (32.0-36.0); MEAN CELL VOLUME 87.5 fl (80-96); MEAN PLT VOLUME 8.7 fl (7.5-11.1); PLATELET COUNT 218 10^3/uL (134-434); RBC 3.71 M/mm3 (3.60-5.2); RDW 13.4 % (11.6-15.6); WHITE BLOOD COUNT 3.9 K/mm3 (4.0-10.0)
[2024-05-10 10:35] LABS: ALBUMIN 3.4 g/dl (3.4-5.0); BLOOD UREA NITROGEN 17.5 mg/dL (7-18); CALCIUM 8.9 mg/dL (8.5-10.1)
[2024-05-10 10:38] LABS: CREATININE 0.9 mg/dL (0.55-1.3)
[2024-05-10 10:40] LABS: BILIRUBIN,TOTAL 0.3 mg/dL (0.2-1); TOT PROT 6.5 g/dl (6.4-8.2)
[2024-05-10] MEDS: chlordiazePOXIDE HCL 25 MG CAPSULE PO PRN (12:18)
[2024-05-10] MEDS: amLODIPine BESYLATE 5 MG TABLET (FP) PO ONE (12:20)
[2024-05-10] MEDS: amLODIPine BESYLATE 5 MG TABLET (FP) PO SCH (12:20)
[2024-05-10] MEDS: SERTRALINE HCL 50 MG TABLET (FP) PO SCH (13:30)
[2024-05-10] MEDS ORDERED: ACAMPROSATE CALCIUM 333 MG TABLET.DR PO SCH (14:00)
[2024-05-10] MEDS: HALOPERIDOL 5 MG TABLET PO SCH (21:53)
[2024-05-10] MEDS: BENZTROPINE MESYLATE 1 MG TABLET PO SCH (21:53)
[2024-05-10] MEDS ORDERED: HALOPERIDOL 5 MG TABLET PO SCH (22:00)
[2024-05-11] MEDS: chlordiazePOXIDE HCL 25 MG CAPSULE PO SCH (05:55)
[2024-05-11] MEDS: HALOPERIDOL 5 MG TABLET PO SCH (10:20)
[2024-05-12] MEDS ORDERED: chlordiazePOXIDE HCL 10 MG CAPSULE PO PRN
[2024-05-12] MEDS: chlordiazePOXIDE HCL 10 MG CAPSULE PO SCH (05:44)
[2024-05-12 06:34] VITALS: RESP 18
[2024-05-12 13:19] VITALS: BP 133/79; PULSE 83; TEMP 98.7
[2024-05-12] MEDS: NALOXONE (NYS OPIOID OVERDOSE PROGRAM) 4 MG/0.1 ML SPRAY NS PRN (15:14)
[2024-05-13] MEDS ORDERED: chlordiazePOXIDE HCL 10 MG CAPSULE PO SCH (05:00)
[2024-05-14] MEDS ORDERED: chlordiazePOXIDE HCL 10 MG CAPSULE PO ONE (05:00)
== END 2024-05-12 13:47 | disposition home or self-care (01) | DRG 774 ==
LOC: YASAS 10:37 → Y6N 15:23
PROVIDERS: ADMIT Allergy & Immunology; ATTEND Surgery
PROC: HZ2ZZZZ Detoxification Services for Substance Abuse Treatment (ICD-10-PCS; principal; 2024-05-09)
DX: F10.230 Alcohol dependence with withdrawal, uncomplicated (principal); F14.20 Cocaine dependence, uncomplicated; F12.20 Cannabis dependence, uncomplicated; F25.1 Schizoaffective disorder, depressive type; I10 Essential (primary) hypertension; Z86.19 Personal history of other infectious and parasitic diseases; Z86.11 Personal history of tuberculosis
CPT/HCPCS: 36415; 80053; 80305; 80307; 85027; 86593; 86780; 93005; 93010

== ENCOUNTER 2024-06-13 13:16 | Inpatient (IN) | payer BC ==
[2024-06-14] MEDS ORDERED: IBUPROFEN 400 MG TABLET (FP) PO PRN (08:26)
[2024-06-14] MEDS ORDERED: BENZONATATE 200 MG CAPSULE PO PRN (08:26)
[2024-06-14] MEDS ORDERED: POLYETHYLENE GLYCOL (HEALTHYLAX) 3350 17 GM PACKET PO PRN (08:26)
[2024-06-14] MEDS ORDERED: NICOTINE POLACRILEX 2 MG GUM BUC PRN (08:26)
[2024-06-14] MEDS ORDERED: NICOTINE POLACRILEX 2 MG LOZENGE BC PRN (08:26)
[2024-06-14] MEDS ORDERED: guaiFENesin 600 MG TABLET.ER (FP) PO PRN (08:26)
[2024-06-14] MEDS ORDERED: IBUPROFEN 600 MG TABLET (FP) PO PRN (08:26)
[2024-06-14] MEDS ORDERED: LOPERAMIDE HCL 2 MG CAPSULE PO PRN (08:26)
[2024-06-14] MEDS ORDERED: BENZOCAINE/MENTHOL (CHLORASEPTIC ) LOZENGE MM PRN (08:26)
[2024-06-14] MEDS ORDERED: ACETAMINOPHEN 325 MG TABLET (FP) PO PRN (08:26)
[2024-06-14] MEDS ORDERED: MAGNESIUM HYDROX 2400MG/30ML ORAL SUSPENSION 30 ML CUP PO PRN (08:26)
[2024-06-14] MEDS ORDERED: HALOPERIDOL 5 MG TABLET PO PRN (08:32)
[2024-06-14] MEDS: SERTRALINE HCL 50 MG TABLET (FP) PO SCH (09:20)
[2024-06-14] MEDS: amLODIPine BESYLATE 10 MG TABLET (FP) PO SCH (09:21)
[2024-06-14] MEDS: BENZTROPINE MESYLATE 1 MG TABLET PO SCH (09:21)
[2024-06-14] MEDS: PRENATAL VITAMINS W/ FOLIC ACID TABLET (FP) PO SCH (09:21)
[2024-06-14] MEDS: MELATONIN 5 MG TABLETS PO SCH (21:43)
[2024-06-14] MEDS: HALOPERIDOL 5 MG TABLET PO SCH (21:43)
[2024-06-14] MEDS: THIAMINE 100 MG TABLET PO SCH (21:44)
[2024-06-14] MEDS ORDERED: HALOPERIDOL 5 MG TABLET PO SCH (22:00)
[2024-06-18] MEDS: MAG HYDROX/AL HYDROX/SIMETH 30 ML UNIT-DOSE CUP PO PRN (13:49)
[2024-06-21] MEDS: HALOPERIDOL 5 MG TABLET PO PRN (15:17)
[2024-06-22] MEDS: HALOPERIDOL 5 MG TABLET PO SCH ×2 (10:00→21:46)
[2024-06-22] MEDS: hydrOXYzine PAMOATE 25 MG CAPSULE (FP) PO PRN (17:07)
[2024-06-23 07:01] VITALS: TEMP 97.5
[2024-06-23 08:59] VITALS: BP 130/77; PULSE 70; RESP 18
[2024-06-23] MEDS ORDERED: NALOXONE (NYS OPIOID OVERDOSE PROGRAM) 4 MG/0.1 ML SPRAY NS SCH (12:15)
[2024-06-28] MEDS ORDERED: HALOPERIDOL DECANOATE 100 MG/ML IM ONE (10:00)
== END 2024-06-23 12:00 | disposition home or self-care (01) | DRG 772 ==
LOC: YASAS 13:16 → Y3NR 13:19 → Y5N 06-14 09:44
PROVIDERS: ADMIT Allergy & Immunology; ATTEND Psychiatry & Neurology Pain Medicine
PROC: HZ42ZZZ Group Counseling for Substance Abuse Treatment, Cognitive-Behavioral (ICD-10-PCS; principal; 2024-06-13)
DX: F10.20 Alcohol dependence, uncomplicated (principal); F14.20 Cocaine dependence, uncomplicated; F25.9 Schizoaffective disorder, unspecified; F10.282 Alcohol dependence with alcohol-induced sleep disorder; F10.24 Alcohol dependence with alcohol-induced mood disorder; I10 Essential (primary) hypertension; M17.12 Unilateral primary osteoarthritis, left knee; M54.50 Low back pain, unspecified; G89.29 Other chronic pain; Z86.19 Personal history of other infectious and parasitic diseases

== ENCOUNTER 2024-08-11 11:18 | Inpatient (IN) | payer BC ==
[2024-08-11 11:32] VITALS: BMI 26.8
[2024-08-11] MEDS ORDERED: BISMUTH SUBSALICYLATE 524 MG/30 ML PO PRN (12:24)
[2024-08-11] MEDS ORDERED: IBUPROFEN 600 MG TABLET (FP) PO PRN (12:24)
[2024-08-11] MEDS ORDERED: guaiFENesin 600 MG TABLET.ER (FP) PO PRN (12:24)
[2024-08-11] MEDS ORDERED: LOPERAMIDE HCL 2 MG CAPSULE PO PRN (12:24)
[2024-08-11] MEDS ORDERED: POLYETHYLENE GLYCOL (HEALTHYLAX) 3350 17 GM PACKET PO PRN (12:24)
[2024-08-11] MEDS ORDERED: chlordiazePOXIDE HCL 25 MG CAPSULE PO PRN (12:24)
[2024-08-11] MEDS ORDERED: MAG HYDROX/AL HYDROX/SIMETH 30 ML UNIT-DOSE CUP PO PRN (12:24)
[2024-08-11] MEDS ORDERED: IBUPROFEN 400 MG TABLET (FP) PO PRN (12:24)
[2024-08-11] MEDS ORDERED: ACETAMINOPHEN 325 MG TABLET (FP) PO PRN (12:24)
[2024-08-11] MEDS ORDERED: ONDANSETRON *ODT* 4 MG TABLET SL PRN (12:24)
[2024-08-11] MEDS ORDERED: BENZONATATE 200 MG CAPSULE PO PRN (12:24)
[2024-08-11] MEDS ORDERED: BENZOCAINE/MENTHOL (CHLORASEPTIC ) LOZENGE MM PRN (12:24)
[2024-08-11] MEDS ORDERED: DICYCLOMINE HCL 10 MG CAPSULE PO PRN (12:24)
[2024-08-11] MEDS ORDERED: MAGNESIUM HYDROX 2400MG/30ML ORAL SUSPENSION 30 ML CUP PO PRN (12:24)
[2024-08-11] MEDS ORDERED: NALOXONE (NARCAN) HCL 4 MG/0.1 ML SPRAY NS PRN (12:24)
[2024-08-11] MEDS ORDERED: PRENATAL VITAMINS W/ FOLIC ACID TABLET (FP) PO ONE (13:33)
[2024-08-11] MEDS: PRENATAL VITAMINS W/ FOLIC ACID TABLET (FP) PO SCH (13:38)
[2024-08-11] MEDS: ACAMPROSATE CALCIUM 333 MG TABLET.DR PO SCH (15:36)
[2024-08-11] MEDS: MELATONIN 5 MG TABLETS PO SCH (23:32)
[2024-08-11] MEDS: THIAMINE 100 MG TABLET PO SCH (23:33)
[2024-08-11] MEDS: chlordiazePOXIDE HCL 25 MG CAPSULE PO SCH (23:33)
[2024-08-12] MEDS ORDERED: chlordiazePOXIDE HCL 25 MG CAPSULE ONE (06:45)
[2024-08-12] MEDS ORDERED: PRENATAL VITAMINS W/ FOLIC ACID TABLET (FP) PO ONE (10:11)
[2024-08-12] MEDS: amLODIPine BESYLATE 10 MG TABLET (FP) PO SCH (10:12)
[2024-08-12 12:36] LABS: HEMATOCRIT 34.3 % (32.4-45.2); HEMOGLOBIN 11.2 GM/dL (10.7-15.3); MCH 28.7 pg (25.7-33.7); MCHC 32.7 g/dl (32.0-36.0); MEAN PLT VOLUME 8.1 fl (7.5-11.1); PLATELET COUNT 258 10^3/uL (134-434); WHITE BLOOD COUNT 2.8 K/mm3 (4.0-10.0)
[2024-08-12 12:39] LABS: ALBUMIN 3.3 g/dl (3.4-5.0); CALCIUM 9.1 mg/dL (8.5-10.1)
[2024-08-12 12:41] LABS: BLOOD UREA NITROGEN 11.2 mg/dL (7-18)
[2024-08-12 12:43] LABS: CREATININE 0.9 mg/dL (0.55-1.3)
[2024-08-12 12:44] LABS: BILIRUBIN,TOTAL 0.3 mg/dL (0.2-1); TOT PROT 6.4 g/dl (6.4-8.2)
[2024-08-13] MEDS: chlordiazePOXIDE HCL 25 MG CAPSULE PO SCH (05:44)
[2024-08-14] MEDS ORDERED: chlordiazePOXIDE HCL 10 MG CAPSULE PO PRN
[2024-08-14] MEDS: chlordiazePOXIDE HCL 10 MG CAPSULE PO SCH (05:50)
[2024-08-14] MEDS: METHOCARBAMOL 500 MG TABLET PO PRN (22:29)
[2024-08-14] MEDS: hydrOXYzine PAMOATE 25 MG CAPSULE (FP) PO PRN (22:29)
[2024-08-15] MEDS: chlordiazePOXIDE HCL 10 MG CAPSULE PO SCH (05:23)
[2024-08-16] MEDS: chlordiazePOXIDE HCL 10 MG CAPSULE PO ONE (05:44)
[2024-08-16 09:16] VITALS: TEMP 97.6
[2024-08-16 12:45] VITALS: BP 142/74; PULSE 77; RESP 16
== END 2024-08-16 14:14 | disposition other institution (70) | DRG 774 ==
LOC: YASAS 11:18 → Y3N 08-12 12:00
PROVIDERS: ADMIT Allergy & Immunology; ATTEND Allergy & Immunology
PROC: HZ2ZZZZ Detoxification Services for Substance Abuse Treatment (ICD-10-PCS; principal; 2024-08-12)
DX: F10.230 Alcohol dependence with withdrawal, uncomplicated (principal); F14.20 Cocaine dependence, uncomplicated; F25.9 Schizoaffective disorder, unspecified; I10 Essential (primary) hypertension; M54.50 Low back pain, unspecified; G89.29 Other chronic pain; Z62.810 Personal history of physical and sexual abuse in childhood; Z86.19 Personal history of other infectious and parasitic diseases; Z87.891 Personal history of nicotine dependence
CPT/HCPCS: 36415; 80053; 80305; 80307; 85027; 86593; 86780; 87811; 93005; 93010

== ENCOUNTER 2024-09-23 11:17 | Inpatient (IN) | payer BC ==
[2024-09-23 11:41] VITALS: BMI 28.2
[2024-09-23] MEDS ORDERED: ACETAMINOPHEN 325 MG TABLET (FP) PO PRN (12:16)
[2024-09-23] MEDS ORDERED: NICOTINE POLACRILEX 2 MG GUM BUC PRN (12:16)
[2024-09-23] MEDS ORDERED: ONDANSETRON *ODT* 4 MG TABLET SL PRN (12:16)
[2024-09-23] MEDS ORDERED: NICOTINE POLACRILEX 2 MG LOZENGE BC PRN (12:16)
[2024-09-23] MEDS ORDERED: POLYETHYLENE GLYCOL (HEALTHYLAX) 3350 17 GM PACKET PO PRN (12:16)
[2024-09-23] MEDS ORDERED: DICYCLOMINE HCL 10 MG CAPSULE PO PRN (12:16)
[2024-09-23] MEDS ORDERED: MAG HYDROX/AL HYDROX/SIMETH 30 ML UNIT-DOSE CUP PO PRN (12:16)
[2024-09-23] MEDS ORDERED: MAGNESIUM HYDROX 2400MG/30ML ORAL SUSPENSION 30 ML CUP PO PRN (12:16)
[2024-09-23] MEDS ORDERED: LOPERAMIDE HCL 2 MG CAPSULE PO PRN (12:16)
[2024-09-23] MEDS ORDERED: BENZONATATE 200 MG CAPSULE PO PRN (12:16)
[2024-09-23] MEDS ORDERED: BENZOCAINE/MENTHOL (CHLORASEPTIC ) LOZENGE MM PRN (12:16)
[2024-09-23] MEDS ORDERED: NALOXONE (NARCAN) HCL 4 MG/0.1 ML SPRAY NS PRN (12:16)
[2024-09-23] MEDS ORDERED: guaiFENesin 600 MG TABLET.ER (FP) PO PRN (12:16)
[2024-09-23] MEDS: THIAMINE 100 MG TABLET PO SCH (23:09)
[2024-09-23] MEDS: MELATONIN 5 MG TABLETS PO SCH (23:09)
[2024-09-24 10:09] LABS: POTASSIUM 4.7 mmol/L (3.5-5.1)
[2024-09-24 10:14] LABS: HEMATOCRIT 32.9 % (32.4-45.2); HEMOGLOBIN 11.2 GM/dL (10.7-15.3); MCH 29.3 pg (25.7-33.7); MCHC 34.2 g/dl (32.0-36.0); MEAN CELL VOLUME 85.7 fl (80-96); MEAN PLT VOLUME 8.3 fl (7.5-11.1); PLATELET COUNT 194 10^3/uL (134-434); RBC 3.84 M/mm3 (3.60-5.2); WHITE BLOOD COUNT 4.7 K/mm3 (4.0-10.0)
[2024-09-24] MEDS: PRENATAL VITAMINS W/ FOLIC ACID TABLET (FP) PO SCH (10:17)
[2024-09-24 10:58] LABS: CALCIUM 8.9 mg/dL (8.5-10.1)
[2024-09-24 10:59] LABS: ALBUMIN 3.5 g/dl (3.4-5.0); BLOOD UREA NITROGEN 16.5 mg/dL (7-18)
[2024-09-24 11:02] LABS: CREATININE 0.9 mg/dL (0.55-1.3)
[2024-09-24 11:04] LABS: BILIRUBIN,TOTAL 0.7 mg/dL (0.2-1); TOT PROT 6.7 g/dl (6.4-8.2)
[2024-09-24] MEDS: BENZTROPINE MESYLATE 1 MG TABLET PO SCH (12:30)
[2024-09-24] MEDS: OLANZapine 5 MG TABLET PO SCH (12:30)
[2024-09-24] MEDS: METHOCARBAMOL 500 MG TABLET PO PRN (22:37)
[2024-09-25] MEDS: amLODIPine BESYLATE 10 MG TABLET (FP) PO SCH (10:22)
[2024-09-25] MEDS ORDERED: LORazepam 1 MG TABLET PO PRN (14:48)
[2024-09-25] MEDS: LORazepam 1 MG TABLET PO SCH (17:23)
[2024-09-26] MEDS: LORazepam 0.5 MG TABLET PO SCH (06:00)
[2024-09-26] MEDS: NALTREXONE HCL 50 MG TABLET PO ONE ×2 (13:28→13:51)
[2024-09-27] MEDS: LORazepam 0.5 MG TABLET PO ONE (06:00)
[2024-09-27 09:10] VITALS: BP 136/83; PULSE 85; RESP 18; TEMP 98.6
[2024-09-27] MEDS: NALTREXONE HCL 50 MG TABLET PO SCH (09:10)
== END 2024-09-27 09:52 | disposition home or self-care (01) | DRG 774 ==
LOC: YASAS 11:17 → Y6N 14:03
PROVIDERS: ADMIT Allergy & Immunology; ATTEND Allergy & Immunology
PROC: HZ2ZZZZ Detoxification Services for Substance Abuse Treatment (ICD-10-PCS; principal; 2024-09-23)
DX: F10.230 Alcohol dependence with withdrawal, uncomplicated (principal); F14.20 Cocaine dependence, uncomplicated; F12.20 Cannabis dependence, uncomplicated; F17.210 Nicotine dependence, cigarettes, uncomplicated; F25.1 Schizoaffective disorder, depressive type; F10.282 Alcohol dependence with alcohol-induced sleep disorder; F10.24 Alcohol dependence with alcohol-induced mood disorder; I10 Essential (primary) hypertension; Z20.2 Contact with and (suspected) exposure to infections with a predominantly sexual mode of transmission; Z62.810 Personal history of physical and sexual abuse in childhood
CPT/HCPCS: 36415; 80053; 80305; 80307; 85027; 86593; 86780

== ENCOUNTER 2025-01-18 08:16 | Inpatient (IN) | payer BC ==
[2025-01-18 08:43] VITALS: BMI 28.2
[2025-01-18] MEDS ORDERED: POLYETHYLENE GLYCOL (HEALTHYLAX) 3350 17 GM PACKET PO PRN (09:11)
[2025-01-18] MEDS ORDERED: LOPERAMIDE HCL 2 MG CAPSULE PO PRN (09:11)
[2025-01-18] MEDS ORDERED: guaiFENesin 600 MG TABLET.ER (FP) PO PRN (09:11)
[2025-01-18] MEDS ORDERED: MAG HYDROX/AL HYDROX/SIMETH 30 ML UNIT-DOSE CUP PO PRN (09:11)
[2025-01-18] MEDS ORDERED: MAGNESIUM HYDROX 2400MG/30ML ORAL SUSPENSION 30 ML CUP PO PRN (09:11)
[2025-01-18] MEDS ORDERED: DICYCLOMINE HCL 10 MG CAPSULE PO PRN (09:11)
[2025-01-18] MEDS ORDERED: IBUPROFEN 600 MG TABLET (FP) PO PRN (09:11)
[2025-01-18] MEDS ORDERED: NALOXONE (NARCAN) HCL 4 MG/0.1 ML SPRAY NS PRN (09:11)
[2025-01-18] MEDS ORDERED: ONDANSETRON *ODT* 4 MG TABLET SL PRN (09:11)
[2025-01-18] MEDS ORDERED: BENZOCAINE/MENTHOL (CHLORASEPTIC ) LOZENGE MM PRN (09:11)
[2025-01-18] MEDS ORDERED: BISMUTH SUBSALICYLATE 524 MG/30 ML PO PRN (09:11)
[2025-01-18] MEDS ORDERED: BENZONATATE 200 MG CAPSULE PO PRN (09:11)
[2025-01-18] MEDS ORDERED: hydrOXYzine PAMOATE 25 MG CAPSULE (FP) PO PRN (09:11)
[2025-01-18] MEDS ORDERED: IBUPROFEN 400 MG TABLET (FP) PO PRN (09:11)
[2025-01-18] MEDS: PRENATAL VITAMINS W/ FOLIC ACID TABLET (FP) PO SCH (10:09)
[2025-01-18] MEDS: amLODIPine BESYLATE 5 MG TABLET (FP) PO SCH (10:09)
[2025-01-18] MEDS: ACAMPROSATE CALCIUM 333 MG TABLET.DR PO SCH (13:58)
[2025-01-18] MEDS ORDERED: MELATONIN 5 MG TABLETS PO SCH (22:00)
[2025-01-18] MEDS: MELATONIN 5 MG TABLETS PO SCH (22:45)
[2025-01-18] MEDS: THIAMINE 100 MG TABLET PO SCH (22:45)
[2025-01-19] MEDS: ACETAMINOPHEN 325 MG TABLET (FP) PO PRN (06:08)
[2025-01-19] MEDS: METHOCARBAMOL 500 MG TABLET PO PRN (10:29)
[2025-01-19 11:13] LABS: MCHC 31.9 g/dl (32.2-35.5); MEAN CELL VOLUME 89.5 fl (79.4-94.8); MEAN PLT VOLUME 10.7 fl (9.4-12.3); RDW 14.2 % (12.3-16.6)
[2025-01-19 12:13] LABS: CO2 27.0 mmol/L (21-32); GLUCOSE,RANDOM 119.0 mg/dL (74-106)
[2025-01-19 12:16] LABS: CREATININE 1.0 mg/dL (0.55-1.3); SGOT/AST 44.0 U/L (15-37); SGPT/ALT 29.0 U/L (13-61)
[2025-01-19 12:18] LABS: TOT PROT 7.0 g/dl (6.4-8.2)
[2025-01-19 12:19] LABS: ALK PHOS 78.0 U/L (45-117)
[2025-01-19] MEDS: BENZTROPINE MESYLATE 1 MG TABLET PO SCH (22:41)
[2025-01-20] MEDS: SERTRALINE HCL 50 MG TABLET (FP) PO SCH (10:40)
[2025-01-23 06:32] VITALS: RESP 16
[2025-01-23 09:13] VITALS: TEMP 98
[2025-01-23 13:05] VITALS: BP 122/76; PULSE 71
== END 2025-01-23 13:17 | disposition other institution (70) | DRG 774 ==
LOC: SUATTDRO 08:16 → YASAS 08:16 → Y3N 09:48
PROVIDERS: ADMIT Allergy & Immunology; ATTEND Allergy & Immunology
PROC: HZ2ZZZZ Detoxification Services for Substance Abuse Treatment (ICD-10-PCS; principal; 2025-01-18)
DX: F10.230 Alcohol dependence with withdrawal, uncomplicated (principal); F25.1 Schizoaffective disorder, depressive type; F12.20 Cannabis dependence, uncomplicated; F14.20 Cocaine dependence, uncomplicated; I10 Essential (primary) hypertension; F41.8 Other specified anxiety disorders
CPT/HCPCS: 36415; 71045-TC-FY; 80053; 80305; 80307; 85027; 86593; 86780; 93005; 93010